=== PATIENT | female | born 1950 | race Caucasian/White ===

== ENCOUNTER → 2016-08-12 | Outpatient (CLI) | payer BC ==
[2016-08-12 10:20] LABS: Basophils # (A) 0.1 k/uL (0-0.2); Basophils % (A) 1 %; CH 30.6; CHCM 31.8; Eosinophils # (A) 0.3 k/uL (0-0.7); Eosinophils % (A) 4 %; HCT 39.6 % (34.0-46.0); HDW 2.22; HGB 13.1 gm/dL (11.4-16.0); Luc # (Auto) 0.23; Luc % (Auto) 3; Lymphocytes % (A) 26 %; MCHC 33.1 g/dL (31.0-37.0); MCV 96.7 fL (80.0-100.0); Mean Platelet Volume 6.6; Monocytes # (A) 0.5 k/uL (0-1.0); Monocytes % (A) 6 %; Neutrophils # (A) 4.8 k/uL (1.3-7.7); Neutrophils % (A) 61 %; RBC 4.09 m/uL (3.80-5.40); RDW 13.1 % (11.5-15.5); WBC 7.9 k/uL (3.8-10.6); WBC (Perox) 7.77
== END | disposition home or self-care (01) ==
LOC: LABWHC1 09:21
PROVIDERS: ATTEND Otolaryngology
DX: D36.10 Benign neoplasm of peripheral nerves and autonomic nervous system, unspecified (principal); D32.9 Benign neoplasm of meninges, unspecified; R53.83 Other fatigue; E06.9 Thyroiditis, unspecified
CPT/HCPCS: 36415; 84439; 84443; 85025; 86376

== ENCOUNTER → 2018-08-06 | Outpatient (CLI) | payer BC ==
--- NOTE | 2018-08-10 11:48 | MM ---
Reason for exam: screening (asymptomatic). Last mammogram was performed 5 years and 11 months ago. History: Patient is postmenopausal. Physical Findings: A clinical breast exam by your physician is recommended on an annual basis and results should be correlated with mammographic findings. MG Screening Mammo w CAD Bilateral CC and MLO view(s) were taken. Prior study comparison: September 14, 2012, bilateral digital screening mammo w/CAD. June 20, 2009, bilateral digital screening mammogram. There are scattered fibroglandular densities. Finding #1: There is a 7 mm obscured round mass in the upper outer quadrant, middle position of the right breast with possible adjacent nodularity. Finding #2: There are typically benign round, linear calcifications in both breasts. #3 Nodular cluster left breast anterior middle depth central aspect 4cm from the nipple. New finding since September 14, 2012. ASSESSMENT: Incomplete: need additional imaging evaluation, BI-RAD 0 RECOMMENDATION: Special view mammogram of both breasts. Ultrasound of the right breast. [facility] will attempt to contact patient to return for supplemental views and ultrasound. MANOHAR
== END | disposition home or self-care (01) ==
LOC: RADMAMWWP 09:18
PROVIDERS: ATTEND Family Medicine
DX: Z12.31 Encounter for screening mammogram for malignant neoplasm of breast (principal)
CPT/HCPCS: 77067

== ENCOUNTER → 2018-08-24 | Outpatient (CLI) | payer BC ==
--- NOTE | 2018-08-24 11:34 | MM ---
Reason for exam: additional evaluation requested from abnormal screening. Last mammogram was performed 1 month ago. History: Patient is postmenopausal. Physical Findings: Nurse did not find any significant physical abnormalities on exam. MG Work Up Mamm w CAD BILAT Bilateral spot compression CC, spot compression MLO, and ML view(s) were taken. Prior study comparison: August 06, 2018, bilateral MG screening mammo w CAD. September 14, 2012, bilateral digital screening mammo w/CAD. The breast tissue is heterogeneously dense. This may lower the sensitivity of mammography. The bilateral masses at middle depth persist on additional views. Upper inner quadrant on the left measuring 5mm and upper outer quadrant on the right measuring 6mm. These results were verbally communicated with the patient and result sheet given to the patient on 08/24/18. ASSESSMENT: Incomplete: need additional imaging evaluation, BI-RAD 0 RECOMMENDATION: Ultrasound of both breasts. Left upper inner quadrant, right upper outer quadrant.
--- NOTE | 2018-08-24 11:37 | USB ---
Reason for exam: additional evaluation requested from abnormal screening. History: Patient is postmenopausal. US Breast Workup Limited NICOLA Right limited breast ultrasound including focal area of concern, retroareolar and axilla demonstrates a 0.7 x 0.3 x 0.5cm oval, cystic lesion at 11 o'clock. Left limited breast ultrasound including focal area of concern, retroareolar and axilla demonstrates a 0.3 x 0.4 x 0.2cm oval, hypoechoic lesion at 11 o'clock, possible small cyst. Left mammographic finding may represent ductal ectasia. These results were verbally communicated with the patient and result sheet given to the patient on 08/24/18. ASSESSMENT: Probably benign, BI-RAD 3 RECOMMENDATION: Follow-up diagnostic mammogram and ultrasound of the left breast in 6 months.
== END | disposition home or self-care (01) ==
LOC: RADMAMWWP 08:57
PROVIDERS: ATTEND Family Medicine
DX: R92.8 Other abnormal and inconclusive findings on diagnostic imaging of breast (principal)
CPT/HCPCS: 77066

== ENCOUNTER → 2019-05-23 | Outpatient (CLI) | payer OTHER ==
--- NOTE | 2019-05-23 10:26 | MM ---
Reason for exam: follow-up at short interval from prior study. Last mammogram was performed 9 months ago. History: Patient is postmenopausal and history of other cancer. Physical Findings: Nurse did not find any significant physical abnormalities on exam. MG Diagnostic Mammo LT w CAD CC, MLO, and ML view(s) were taken of the left breast. Prior study comparison: August 24, 2018, bilateral MG work up mamm w CAD BILAT. August 06, 2018, bilateral MG screening mammo w CAD. There are scattered fibroglandular densities. Benign appearing calcifications in the left breast. No suspicious abnormality. Stable 5mm upper inner quadrant left middle depth mass. These results were verbally communicated with the patient and result sheet given to the patient on 05/23/19. ASSESSMENT: Probably benign, BI-RAD 3 RECOMMENDATION: Follow-up diagnostic mammogram of both breasts in 6 months. Due July 2019.
--- NOTE | 2019-05-23 10:27 | USB ---
Reason for exam: follow-up at short interval from prior study. History: Patient is postmenopausal and history of other cancer. US Breast Limited LT Left limited breast ultrasound including focal area of concern, retroareolar and axilla demonstrates no cystic or solid lesion seen. The previously seen 3mm mass at 11 o'clock is no longer seen. These results were verbally communicated with the patient and result sheet given to the patient on 05/23/19. ASSESSMENT: Probably benign, BI-RAD 3 RECOMMENDATION: Follow-up diagnostic mammogram of both breasts in 6 months. Due July 2019.
== END | disposition home or self-care (01) ==
LOC: RADMAMWWP 08:13
PROVIDERS: ATTEND Family Medicine
DX: N63.20 Unspecified lump in the left breast, unspecified quadrant (principal); Q85.00 Neurofibromatosis, unspecified
CPT/HCPCS: 77065

== ENCOUNTER → 2020-06-27 | Outpatient (CLI) | payer BC ==
--- NOTE | 2020-06-28 08:20 | ECHOF ---
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 This was a technically adequate study. The left ventricular size is normal. There is mild concentric left ventricular hypertrophy. Overa ll left ventricular systolic function is normal with, an EF between 65 - 70 %. The right ventricle is normal in size. Normal LA size by volume 22+/-6 ml/m2. The right atrium is normal in size. Interatrial and interventricular septum intact. The aortic valve is trileaflet, and appears structurally normal. No aortic stenosis or regurgitation. The mitral valve is normal. Mild tricuspid regurgitation present. Right ventricular systolic pressure is normal at < 35 mmHg. Trace/mild (physiologic) pulmonic regurgitation. The aortic root size is normal. Normal inferior vena cava with normal inspiratory collapse consistent with estimated right atrial pre ssure of 5 mmHg. There is no pericardial effusion. CONCLUSIONS -------- 1. The left ventricular size is normal. 2. There is mild concentric left ventricular hypertrophy. 3. Overall left ventricular systolic function is normal with, an EF between 65 - 70 %. 4. The aortic valve is trileaflet, and appears structurally normal. No aortic stenosis or regurgitati on. 5. Mild tricuspid regurgitation present. 6. Trace/mild (physiologic) pulmonic regurgitation. 7. There is no pericardial effusion. MAMMAL KEEPER: Mikayla Ravi RDCS
== END | disposition home or self-care (01) ==
LOC: RADECHMAIN 11:22
PROVIDERS: ATTEND Family Medicine
DX: I08.2 Rheumatic disorders of both aortic and tricuspid valves (principal)
CPT/HCPCS: 93306

== ENCOUNTER → 2020-07-25 | Outpatient (CLI) | payer BC ==
[2020-07-25 12:12] LABS: African American GFR (CKD) >90 (>60 ml/min/1.73 sqM); Blood Urea Nitrogen 18 mg/dL (7-17); Non-African American GFR(CKD) >90 (>60 ml/min/1.73 sqM)
--- NOTE | 2020-07-25 14:46 | CT ---
EXAMINATION TYPE: CT angio renal artery DATE OF EXAM: 07/25/2020 COMPARISON: None HISTORY: Hypertension. CT DLP: 878 mGycm Automated exposure control for dose reduction was used. Contrast: None Technique: Axial images 5 mm thick sections. Reconstructed images in the coronal and sagittal plane a re reviewed. Three-D reconstructed images performed on a separate computer by the technologist are re viewed. FINDINGS: The aorta tapers normally through its visualized course. Common iliac internal and external iliac ves sels are normal. Celiac axis and superior mesenteric arteries are patent. There are 2 renal arteries. Origins are widely patent. No significant plaquing is identified. Vessels extend to the kidneys without focal stenosis. Note is made of a nonobstructing inferior pole 0.5 cm calcification right kidney. IMPRESSION: 1. NORMAL-APPEARING BILATERAL RENAL ARTERIES. NO STENOSIS OR OBSTRUCTION IS EVIDENT. 2. NONOBSTRUCTING INFERIOR POLE RIGHT RENAL STONE.
== END | disposition home or self-care (01) ==
LOC: RADCTMAIN 11:26
PROVIDERS: ATTEND Family Medicine
DX: N20.0 Calculus of kidney (principal)
CPT/HCPCS: 82565; 84520; 36415; 74175; Q9967

== ENCOUNTER → 2020-10-05 | Outpatient (CLI) | payer BC ==
--- NOTE | 2020-10-06 03:02 | MR ---
EXAMINATION TYPE: MR brain wo/w con DATE OF EXAM: 10/05/2020 COMPARISON: 01/08/2011 HISTORY: F/U meningioma CONTRAST: Standard multiplanar, multisequence MRI departmental protocol utilizing 9 mL intravenous Gadavist krystal olinium contrast. There is 2 cm area of fluid signal in the left posterior temporal lobe consistent with encephalomalac ia. There is a 2.5 cm rounded intermediate signal mass lateral to the left anterior clinoid process a nd consistent with a sphenoid wing meningioma. There is a 1.870 rounded mass at the right parietal co nvexity which appears extra-axial. There is 2 cm rounded mass adjacent to the cerebral falx in the le ft posterior parietal lobe which appears extra-axial. There is 3 cm extra-axial mass right posterior parietal lobe at the convexity. There is a 1.8 cm rounded extra-axial mass left posterior parietal lo be convexity. There is a 1.5 cm rounded mass adjacent to the cerebral falx right posterior parietal l obe convexity. There is 1.5 cm rounded mass anterior right temporal lobe convexity. There is 3.2 cm r ounded mass anterior right frontal lobe adjacent to the cerebral falx. There is 1.5 cm extra-axial en hancing mass left posterior cerebellar convexity. There are other multiple smaller extra-axial masses . The contrast images show fairly uniform enhancement of all of the described masses and consistent w ith multiple meningiomas. There is 1.5 cm area of enhancement at the left posterior temporal lobe enc ephalomalacia consistent with a meningioma. There is no midline shift. There is no sign of intracrani al hemorrhage. The ventricles have normal size. There is no evidence of an acute infarct. IMPRESSION: Numerous meningiomas. These are increased compared to old MR scan from 10 years ago. Right frontal lo be convexity mass significantly increased in size. Sphenoid wing meningioma increased from 2 cm to 2. 5 cm compared to old exam.
== END | disposition home or self-care (01) ==
LOC: RADMRIMAIN 19:00
PROVIDERS: ATTEND Psychiatry & Neurology Neurology
DX: D32.9 Benign neoplasm of meninges, unspecified (principal); D42.9 Neoplasm of uncertain behavior of meninges, unspecified
CPT/HCPCS: 70553; A9585

== ENCOUNTER 2021-03-20 07:06 | Inpatient (IN) | payer MEDICARE, BC ==
[2021-03-20] MEDS ORDERED: SODIUM CHLORIDE 0.9% 500 ML 500 ML IV STA (07:09)
--- NOTE | 2021-03-20 07:38 | CT ---
EXAMINATION TYPE: CT brain wo con for TPA DATE OF EXAM: 03/20/2021 COMPARISON: MRI 10/05/2020 HISTORY: 70-year-old female left-sided weakness, confusion, AMS TECHNIQUE: Examination was done in axial plane without intravenous contrast. Coronal and sagittal r econstructions performed. CT DLP: 1128.8 mGycm Automated exposure control for dose reduction was used. FINDINGS: Right frontal, left temporal, and left parietal craniotomy flaps are demonstrated. Numerous bilateral extra-axial masses demonstrating varying degrees of calcification are redemonstrat ed. For example, dominant left sphenoid wing meningioma measures 3.1 cm versus 2.9 cm on 10/05/2020. A nterior right frontal meningioma has slight mass effect onto the adjacent anterior falx with leftward bowing and measures up to 3.1 cm, unchanged. Posterior left parafalcine meningioma measures 2.6 cm versus 2.4 cm on 10/05/2020. Superior right parietal meningioma measures 2.7 cm, unchanged. Superior falcine meningioma measures 2.6 cm versus 2.3 cm, previously. Numerous additional meningiomas are present. No acute intracranial hemorrhage. No hydrocephalus or herniation. No extra-axial fluid collection se en. Old resection cavity posterior left temporal lobe is unchanged. Rightward nasal septal deviation. Continued complete opacification right frontal sinus and anterior e thmoid air cells. Mastoid air cells well pneumatized. IMPRESSION: 1. Multiple previous craniotomy flaps are redemonstrated. Numerous bilateral meningiomas are redemons trated with varying degrees of calcification. The anterior right frontal lobe 3.1 cm meningioma is un changed in size and also unchanged in the degree of mild mass effect onto the adjacent anterior falx causing slight leftward bowing. 2. Posterior left parafalcine meningioma minimally larger at 2.6 cm versus 2.4 cm previously. Superio r parafalcine meningioma minimally larger at 2.6 cm versus 2.3 cm, previously. Numerous additional bi lateral meningiomas appear relatively unchanged. 3. Otherwise, no acute change is identified.
[2021-03-20] MEDS ORDERED: ASPIRIN 325 MG TAB PO STA (07:46)
[2021-03-20 07:54] LABS: Basophils % (A) 0 %; Eosinophils # (A) 0.2 k/uL (0-0.7); Eosinophils % (A) 3 %; HCT 38.7 % (34.0-46.0); HGB 12.5 gm/dL (11.4-16.0); Lymphocytes % (A) 21 %; MCH 31.3 pg (25.0-35.0); MCHC 32.2 g/dL (31.0-37.0); MCV 97.2 fL (80.0-100.0); Monocytes # (A) 0.4 k/uL (0-1.0); Monocytes % (A) 4 %; Neutrophils # (A) 6.7 k/uL (1.3-7.7); Neutrophils % (A) 70 %; Platelet Count 407 k/uL (150-450); RBC 3.98 m/uL (3.80-5.40); RDW 12.8 % (11.5-15.5); WBC 9.6 k/uL (3.8-10.6)
--- NOTE | 2021-03-20 07:54 | ED ---
General Adult HPI - General Chief complaint: Neuro Symptoms/Deficit Stated complaint: Neuro Deficits Time Seen by Provider: 03/20/21 07:09 Source: EMS, RN notes reviewed, old records reviewed Mode of arrival: EMS Limitations: no limitations - History of Present Illness Initial comments: 70-year-old female presenting for evaluation of left sided weakness. Symptoms began at 5:50 AM when the patient awoke. Patient has previous history of multiple meningiomas. Has had craniotomy in the remote past. She is not on any anticoagulation. She has history of hypertension and recently had her losartan medication increased from 25-50 mg. Patient states she went to bed in her usual state of health last night without numbness or weakness. No major headache.no speech Changes. - Related Data Home Medications Medication Instructions Recorded Confirmed Multivitamins, Thera [Multivitamin] 1 tab PO DAILY 12/11/15 03/20/21 Jyotsna 500 mg PO DAILY 03/20/21 03/20/21 Ibuprofen 200 mg PO Q8H PRN 03/20/21 03/20/21 Losartan Potassium [Cozaar] 50 mg PO DAILY 03/20/21 03/20/21 Allergies Allergy/AdvReac Type Severity Reaction Status Date / Time Sulfa (Sulfonamide Allergy Rash/Hives Verified 03/20/21 09:48 Antibiotics) codeine AdvReac Severe Nausea & Verified 03/20/21 09:48 Vomiting brimonidine AdvReac cotton Verified 03/20/21 09:48 mouth Review of Systems ROS Statement: Those systems with pertinent positive or pertinent negative responses have been documented in the HPI. ROS Other: All systems not noted in ROS Statement are negative. 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, hemorrhoids, hx skin cancer History of Any Multi-Drug Resistant Organisms: None Reported Past Surgical History: Hysterectomy, Tonsillectomy Additional Past Surgical History / Comment(s): 3 brain surgeries for benign tumors, hemorrhoidectomy Past Anesthesia/Blood Transfusion Reactions: Motion Sickness, Postoperative Nausea & Vomiting (PONV) Additional Past Anesthesia/Blood Transfusion Reaction / Comment(s): severe PONV Past Psychological History: No Psychological Hx Reported Smoking Status: Former smoker Past Alcohol Use History: None Reported Past Drug Use History: None Reported - Past Family History Father Family Medical History: Cancer Mother Family Medical History: Cancer General Exam Limitations: no limitations General appearance: alert, in no apparent distress Head exam: Present: atraumatic, normocephalic Eye exam: Present: normal appearance, PERRL, EOMI ENT exam: Present: normal exam Neck exam: Present: normal inspection. Absent: tenderness, meningismus Respiratory exam: Present: normal lung sounds bilaterally. Absent: respiratory distress, wheezes Cardiovascular Exam: Present: normal rhythm, tachycardia GI/Abdominal exam: Present: soft. Absent: distended, tenderness, guarding Extremities exam: Present: normal inspection, normal capillary refill. Absent: pedal edema Neurological exam: Present: alert, oriented X3, motor sensory deficit (Left arm drift, left upper extremity ataxia, left leg drift, NIH of 6) Psychiatric exam: Present: normal affect, normal mood Skin exam: Present: warm, dry, intact. Absent: cyanosis, diaphoretic Course Vital Signs 03/20/21 03/20/21 03/20/21 07:20 07:35 07:40 Temperature 97.9 F 97.9 F 97.9 F Pulse Rate 106 H 109 H 107 H Respiratory 18 18 18 Rate Blood Pressure 153/77 162/76 153/77 O2 Sat by Pulse 98 98 98 Oximetry 03/20/21 03/20/21 03/20/21 07:50 08:05 08:20 Temperature 98.0 F 98 F 98 F Pulse Rate 101 H 109 H 104 H Respiratory 18 18 18 Rate Blood Pressure 149/70 166/81 167/83 O2 Sat by Pulse 99 97 97 Oximetry - Reevaluation(s) Reevaluation #1: 03/20/21 07:[address] Saenz, covering for stroke intervention, recommends medical management at this time given the low NIH, history of meningioma and wake up symptoms. Patient not a TPA candidate. EKG Findings - EKG Comments: EKG Findings:: EKG: Sinus tachycardia rate of 102, left axis deviation, left ventricular hypertrophy, IN interval 146, QRS duration 82, QTC 450, no ST segment elevation. Medical Decision Making - Medical Decision Making 70-year-old female history of multiple meningiomas, neurofibromatosis presenting with acute onset left-sided weakness. Initial NIH of 6. Patient is evaluated as a stroke activation. She does also have some tremor activity which is rhythmic and occurring about every [address] showing multiple meningiomas which does appear relatively stable, no intracranial hemorrhage. CT angiography negative for acute obstruction or stenosis. Patient's care had been discussed with the stroke intervention was Dr. Diaz who did not recommend TPA, no need for thrombectomy or acute management. I discussed case with [facility] with the patient is familiar with regarding her meningiomas. I discussed case with their stroke team and with the neuro earth science technician Dr. Gilmore. At this time the patient will be kept at this institution, recommendations were for EEG and Keppra. The case is also been discussed with Dr. Ochoa who is happy to see this patient in consultation. If the patient should develop worsening or changing symptoms or should have refractory seizure she can be transferred to [facility], team is aware of patient's current presentation. - Lab Data Result diagrams: 03/20/21 07:46 03/20/21 07:46 Lab Results 03/20/21 03/20/21 03/20/21 Range/Units 07:46 07:46 07:46 WBC 9.6 (3.8-10.6) k/uL RBC 3.98 (3.80-5.40) m/uL Hgb 12.5 (11.4-16.0) gm/dL Hct 38.7 (34.0-46.0) % MCV 97.2 (80.0-100.0) fL MCH 31.3 (25.0-35.0) pg MCHC 32.2 (31.0-37.0) g/dL RDW 12.8 (11.5-15.5) % Plt Count 407 (150-450) k/uL MPV 7.0 Neutrophils % 70 % Lymphocytes % 21 % Monocytes % 4 % Eosinophils % 3 % Basophils % 0 % Neutrophils # 6.7 (1.3-7.7) k/uL Lymphocytes # 2.0 (1.0-4.8) k/uL Monocytes # 0.4 (0-1.0) k/uL Eosinophils # 0.2 (0-0.7) k/uL Basophils # 0.0 (0-0.2) k/uL PT 10.5 (9.0-12.0) sec INR 1.0 (<1.2) APTT 25.1 (22.0-30.0) sec Sodium 135 L (137-145) mmol/L Potassium 4.8 (3.5-5.1) mmol/L Chloride 103 (98-107) mmol/L Carbon Dioxide 21 L (22-30) mmol/L Anion Gap 11 mmol/L BUN 18 H (7-17) mg/dL Creatinine 0.56 (0.52-1.04) mg/dL Est GFR (CKD-EPI)AfAm >90 (>60 ml/min/1.73 sqM) Est GFR (CKD-EPI)NonAf >90 (>60 ml/min/1.73 sqM) Glucose 132 H (74-99) mg/dL Calcium 9.5 (8.4-10.2) mg/dL Total Bilirubin 0.9 (0.2-1.3) mg/dL AST 21 (14-36) U/L ALT 16 (4-34) U/L Alkaline Phosphatase 119 (38-126) U/L Troponin I (0.000-0.034) ng/mL Total Protein 7.5 (6.3-8.2) g/dL Albumin 4.1 (3.5-5.0) g/dL Coronavirus (PCR) (Not Detectd) 03/20/21 03/20/21 Range/Units 07:46 09:07 WBC (3.8-10.6) k/uL RBC (3.80-5.40) m/uL Hgb (11.4-16.0) gm/dL Hct (34.0-46.0) % MCV (80.0-100.0) fL MCH (25.0-35.0) pg MCHC (31.0-37.0) g/dL RDW (11.5-15.5) % Plt Count (150-450) k/uL MPV Neutrophils % % Lymphocytes % % Monocytes % % Eosinophils % % Basophils % % Neutrophils # (1.3-7.7) k/uL Lymphocytes # (1.0-4.8) k/uL Monocytes # (0-1.0) k/uL Eosinophils # (0-0.7) k/uL Basophils # (0-0.2) k/uL PT (9.0-12.0) sec INR (<1.2) APTT (22.0-30.0) sec Sodium (137-145) mmol/L Potassium (3.5-5.1) mmol/L Chloride (98-107) mmol/L Carbon Dioxide (22-30) mmol/L Anion Gap mmol/L BUN (7-17) mg/dL Creatinine (0.52-1.04) mg/dL Est GFR (CKD-EPI)AfAm (>60 ml/min/1.73 sqM) Est GFR (CKD-EPI)NonAf (>60 ml/min/1.73 sqM) Glucose (74-99) mg/dL Calcium (8.4-10.2) mg/dL Total Bilirubin (0.2-1.3) mg/dL AST (14-36) U/L ALT (4-34) U/L Alkaline Phosphatase (38-126) U/L Troponin I <0.012 (0.000-0.034) ng/mL Total Protein (6.3-8.2) g/dL Albumin (3.5-5.0) g/dL Coronavirus (PCR) Not Detected (Not Detectd) Disposition Clinical Impression: Seizure, Left-sided weakness Disposition: ADMITTED IP TO THIS [facility] Condition: Stable Is patient prescribed a controlled substance at d/c from ED?: No Decision to Admit Reason: Admit from EC Decision Date: 03/20/21 Decision Time: 10:08
--- NOTE | 2021-03-20 07:59 | CT ---
EXAMINATION TYPE: CT angio head neck DATE OF EXAM: 03/20/2021 COMPARISON: CT brain same day HISTORY: 70-year-old female left-sided weakness, confusion, AMS TECHNIQUE: Contiguous axial scanning of the head and neck performed with IV Contrast, patient injecte d with 65 mL of Isovue 370. Coronal/sagittal MIP reconstructions performed. 3-D reconstructions gener ated on a dedicated independent workstation. CT DLP: 627.1 mGycm Automated exposure control for dose reduction was used. FINDINGS: NECK: Mild biapical pleural-parenchymal scarring in the visualized upper lungs. There is conventional arterial vessel branching anatomy. The right brachiocephalic, right common carotid artery are patent. Retropharyngeal course proximal to mid right ICA. Right ICA otherwise widely patent. Left common and left internal carotid arteries are widely patent. NASCET criteria is utilized. Left vertebral artery is dominant. Both vertebral arteries are patent throughout the course. HEAD: Dominant left vertebral artery. The right vertebral artery becomes even more hypoplastic after the PI CA takeoff. The basilar artery is diffusely diminutive in caliber. There are bilateral persistent origin of the posterior cerebral arteries. Posterior circulation otherwise appears patent. The internal carotid arteries are patent. Anterior communicating artery not well seen, likely hypopla stic. The patient's left sphenoid wing meningioma has mass effect, superiorly displacing the left carotid t erminus and M1 segment of the left MCA. Anterior circulation appears patent. There is enhancement seen within the dural venous sinuses. Somewhat irregular enhancement left transv erse sinus similar to the 10/05/2020 MRI with overlying craniotomy flap noted, likely due to postsurgi jake change. No aneurysmal change identified. IMPRESSION: NECK: 1. PATENT CAROTID AND VERTEBRAL ARTERIES OF THE NECK. 2. DOMINANT LEFT VERTEBRAL ARTERY. HEAD: 3. AGAIN, DOMINANT LEFT VERTEBRAL ARTERY. THE RIGHT VERTEBRAL ARTERY BECOMES EVEN MORE HYPOPLASTIC AF TER THE PICA TAKEOFF AND THE BASILAR ARTERY IS DIFFUSELY DIMINUTIVE IN CALIBER. CORRELATE FOR ANY CHR ONIC SYMPTOMS OF VERTEBROBASILAR INSUFFICIENCY. 4. THE POSTERIOR CEREBRAL ARTERIES ARE SUPPLIED BY PERSISTENT ORIGINS FROM THE INTERNAL CAROTID ARTERIES. 5. INCIDENTALLY, THE PATIENT'S LEFT SPHENOID WING MENINGIOMA HAS MASS EFFECT, SUPERIORLY DISPLACING T HE LEFT CAROTID TERMINUS AND M1 SEGMENT LEFT MCA, OVERALL SIMILAR APPEARANCE COMPARED TO MRI OF 2020. 6. NO LARGE VESSEL INTRACRANIAL ARTERIAL OCCLUSION OR SIGNIFICANT STENOSIS IS SEEN. CONSIDER MRI IF S YMPTOMS PERSIST.
[2021-03-20 08:02] LABS: Partial Thromboplastin Time 25.1 sec (22.0-30.0); Prothrombin Time 10.5 sec (9.0-12.0)
[2021-03-20 08:19] LABS: ALT 16 U/L (4-34); AST 21 U/L (14-36); African American GFR (CKD) >90 (>60 ml/min/1.73 sqM); Albumin 4.1 g/dL (3.5-5.0); Alkaline Phosphatase 119 U/L (38-126); Anion Gap 11 mmol/L; Blood Urea Nitrogen 18 mg/dL (7-17); Calcium 9.5 mg/dL (8.4-10.2); Carbon Dioxide 21 mmol/L (22-30); Chloride 103 mmol/L (98-107); Glucose 132 mg/dL (74-99); Non-African American GFR(CKD) >90 (>60 ml/min/1.73 sqM); Potassium 4.8 mmol/L (3.5-5.1); Sodium 135 mmol/L (137-145); Total Bilirubin 0.9 mg/dL (0.2-1.3); Total Protein 7.5 g/dL (6.3-8.2)
[2021-03-20] MEDS ORDERED: levETIRAcetam IV 1,500 MG in SALINE 1 100ML.BAG IVPB STA (08:46)
--- NOTE | 2021-03-20 08:58 | XR ---
EXAMINATION TYPE: XR chest 2V DATE OF EXAM: 03/20/2021 COMPARISON: NONE HISTORY: Altered mental status TECHNIQUE: Frontal and lateral views of the chest are obtained. FINDINGS: Patient is rotated. There is no focal air space opacity, pleural effusion, or pneumothorax seen. The cardiac silhouette size is remarkable for possible cardiac enlargement. There are overlyin g artifacts. The osseous structures are intact. IMPRESSION: Rotated exam. Consider follow-up PA and lateral chest x-ray for better evaluation, possi ble cardiomegaly
[2021-03-20] MEDS ORDERED: ACETAMINOPHEN TAB 325 MG TAB PO STA (10:08)
[2021-03-20] MEDS ORDERED: NALOXONE 0.4 MG/ML 1 ML VIAL IV PRN (10:11)
[2021-03-20] MEDS: SODIUM CHLORIDE 0.9% 1,000 ML IV SCH ×2 (11:19→20:23)
[2021-03-20] MEDS ORDERED: IBUPROFEN 200 MG TAB PO PRN (11:31)
--- NOTE | 2021-03-20 11:36 | P.HPIM ---
History of Present Illness H&P Date: 03/20/21 Chief Complaint: Tremors and weakness 70-year-old female with history of multiple brain meningiomas presented to emergency department due to sudden onset of left-sided weakness as well as generalized tremors that started today. Patient stated that he has some tremors yesterday but no weakness. This morning when she woke up around 5:00 in the morning she noted that her left side was weak. She could not use her left arm or leg. In addition she was having generalized tremors/shaking episodes that would last for several minutes and then subside spontaneously. She states that she feels those episodes coming when they do. Patient has significant history of multiple meningiomas that was diagnosed about 15 years ago. She had 3 brain surgeries for tumor resection in the past and most recently she was supposed to have a follow-up MRI this month to follow-up on the size of the meningiomas. In the emergency department patient had a head CT scan that showed numerous bilateral meningiomas, the anterior right frontal lobe 3.1 cm meningioma is not changed in size or the mild mass effect on to the adjacent anterior falx, posterior left parafalcine meningioma minimally larger at 2.6 cm versus 2.4 cm previously. Superior parafalcine meningioma minimally larger at 2.6 cm versus 2.3 cm previously. Numerous additional bilateral meningiomas appear relatively unchanged. Case was discussed with neurology who advised transferring patient to [facility] however due to no bed availability she was kept here for further management. 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, hemorrhoids, hx skin cancer History of Any Multi-Drug Resistant Organisms: None Reported Past Surgical History: Hysterectomy, Tonsillectomy Additional Past Surgical History / Comment(s): 3 brain surgeries for benign tumors, hemorrhoidectomy Past Anesthesia/Blood Transfusion Reactions: Motion Sickness, Postoperative Nausea & Vomiting (PONV) Additional Past Anesthesia/Blood Transfusion Reaction / Comment(s): severe PONV Past Psychological History: No Psychological Hx Reported Smoking Status: Former smoker Past Alcohol Use History: None Reported Past Drug Use History: None Reported - Past Family History Father Family Medical History: Cancer Mother Family Medical History: Cancer Medications and Allergies Home Medications Medication Instructions Recorded Confirmed Type Multivitamins, Thera [Multivitamin] 1 tab PO DAILY 12/11/15 03/20/21 History Jyotsna 500 mg PO DAILY 03/20/21 03/20/21 History Ibuprofen 200 mg PO Q8H PRN 03/20/21 03/20/21 History Losartan Potassium [Cozaar] 50 mg PO DAILY 03/20/21 03/20/21 History Allergies Allergy/AdvReac Type Severity Reaction Status Date / Time Sulfa (Sulfonamide Allergy Rash/Hives Verified 03/20/21 09:48 Antibiotics) codeine AdvReac Severe Nausea & Verified 03/20/21 09:48 Vomiting brimonidine AdvReac cotton Verified 03/20/21 09:48 mouth Physical Exam Vitals: Vital Signs Temp Pulse Resp BP Pulse Ox 03/20/21 08:20 98 F 104 H 18 167/83 97 03/20/21 08:05 98 F 109 H 18 166/81 97 03/20/21 07:50 98.0 F 101 H 18 149/70 99 03/20/21 07:40 97.9 F 107 H 18 153/77 98 03/20/21 07:35 97.9 F 109 H 18 162/76 98 03/20/21 07:20 97.9 F 106 H 18 153/77 98 Intake and Output 03/19/21 03/20/21 03/20/21 22:59 06:59 14:59 Other: Weight 92.986 kg Constitutional: No acute distress, conversant, pleasant Eyes:Anicteric sclerae, moist conjunctiva, no lid-lag, PERRLA, ENMT: Oropharynx clear, no erythema, exudates Neck: Supple, FROM, no masses, or JVD, No carotid bruits, No thyromegaly Lungs: Clear to auscultation, Clear to percussion, Normal respiratory effort, no accessory muscle use Cardiovascular: Heart regular in rate and rhythm, No murmurs, gallops, or rubs, No peripheral edema Abdominal: Soft, Nontender, no guarding, rebound or rigidity, Normoactive bowel sounds, No hepatomegaly, No splenomegaly, No palpable mass Skin: Normal temperature, tone, texture, turgor, no induration, No subcutaneous nodules, No rash, lesions, No ulcers Extremities: No digital cyanosis, No clubbing, Pedal pulses intact and symmetrical, Radial pulses intact and symmetrical, No calf tenderness Psychiatric: Alert and oriented to person, place and time, appropriate affect, intact judgement Neuro: Muscles Strength 5/5 in RUE and RLE extremities, 4+/5 in the LUE and LLE. Sensation to light touch grossly present throughout, Cranial nerves II-XII grossly intact, no focal sensory deficits Results CBC & Chem 7: 03/20/21 07:46 03/20/21 07:46 Labs: Abnormal Lab Results - Last 24 Hours (Table) 03/20/21 Range/Units 07:46 Sodium 135 L (137-145) mmol/L Carbon Dioxide 21 L (22-30) mmol/L BUN 18 H (7-17) mg/dL Glucose 132 H (74-99) mg/dL Assessment and Plan Plan: Generalized tremors/seizures Patient admitted Tele Neuro consult-recommending brain MRI and EEG. Keppra started Neurochecks q2hrs Hx of multiple brain menigiomas Follow up with neurosurgeon outpatient Chronic headaces Tylenol prn GERD HTN Stable resume meds Admitted to inpatient expected length of stay more than 2 midnights
--- NOTE | 2021-03-20 11:36 | P.CNNES ---
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 Patient is accompanied by her and her daughter. Patient stated that that the her last normal state was at 3:30 AM today and then she went to sleep and when she woke up at 550 at a.m. she noticed that her left leg was weak rated she also noted that she was having rhythmic contraction over the left groin region as well as the left chest region that was happening every 5 minutes lasting for about a minute. She also noted that she was also having a left upper extremity weakness. She denies any numbness or tingling, visual disturbance, difficulty getting her words out. During these rhythmic the contraction over the left groin and the thigh she denies any loss of consciousness, urinary bowel incontinence or any tongue bite at. She denies any recall that she is having any jerking episode. She denies any history of seizures in the past. Per the ED attending he noticed that she was having tremors associate with this contraction of bilateral upper extremities. Patient denies any stroke or TIAs in the past and I stated earlier she denies any history of seizures. She has numerous meningiomas and the follows up with a neurologist (Dr. Jadon Perez) and neurosurgeon (Dr. Marck Carlos) over at [facility] and the last time she was in [place] by them was in September 2020. Stated that to her neurosurgeon suspects that the patient has neurofibromatosis type 2 and she does not have any family history of neurfibromatosis. He did not have a genetic test done since it was too expensive. She said that the she has outpatient the MRI of her entire spine scheduled (ordered by her neurologist /neurosurgeon) to evaluate any further meningiomas. Of note patient stated that she had the 2 surgeries in 2004 with a removed some of the the meningiomas his surgery in 2006 and both surgeries were at [facility]. She said in 2007 surgery she developed the as a result mild the cognitive impairment as well as the difficulty getting her words out. Patient denies of tobacco use, and illicit drug use or alcohol use. Some other workup in the hospital consisted of: Initial vital signs blood pressure of 153/77, heart rate of 106, respiratory of 18, temperature of 97.9 Fahrenheit and the pulse ox of 98% room air. CBC with differential is unremarkable Chemstrip panel sodium was 135, glucose is 132 but the rest of the chemistry panel is unremarkable Calcium is 9.5, AST of 21, ALP of 16 Connors virus PCR was not detected. CT of the head is reported as multiple previous craniotomy flap R redemonst rated. Numerous bilateral meningioma R redemonstrated with varying degree of calcification. The anterior right frontal lobe 3.1 cm meningioma is unchanged in size and also on change in the degree of mild mass effect onto the adjacent anterior falx causing slight left forward bowling. Posterior left parafalcine meningioma minimally larger at 2.6 cm versus 2.4 cm previously. Superior to her fell sign meningioma minimally larger at 2.6 cm versus 2.3 cm previously. Numerous additional bilateral meningioma appear relatively unchanged. Otherwise no acute change identified. I personally reviewed the CT of the head and there is no acute subacute ischemia and there is no truncal hemorrhage appeared the patient has numerous meningioma seen CT angiography of the neck is reported as patent carotid vertebral arteries of the neck. Dominant left vertebral artery. CT angiography of the head is reported again dominant left vertebral artery. The right vertebral artery becomes even more hypoplastic after the PICA takeoff and the basilar artery is diffusely and diminutive in caliber correlate for any chronic symptoms of vertebrobasilar insufficiency. The posterior cerebral artery are supplied by the persistent origin from the internal carotid arteries at. Incidentally the patient's left sphenoid wing meningioma has mass effect, superiorly displaced in the left carotid terminus and M1 segment left MCA, overall similar appearance compared to MRI of 10/05/2020. No larger vessel intracranial arterial occlusion or significant stenosis is seen. Consider MRI if symptoms persist. The ED team felt possibly this was a stroke and activateed stroke code. NIH per the ED team was 6. The ED the team spoke with Dr. baker I did not feel the patient was a TPA candidate (think because of the risk outweighed the benefit especially with numerous meningioma) and no need for thrombectomy. The patient was given aspirin 325 once in the ED. The ED attending spoke with me and I felt the patient likely had that seizure especially with the tremor activity with rhythmic and occurring every 5 minutes. I notified the ED attending to have the patient transferred for neuro surgical evaluation. He contacted [facility] and they stated that if the patient's condition worsens they'll be more than happy to accept the patient since no bed availability. Review of Systems Review of system: The 12 point system was reviewed and apparent positive and negative per HPI. 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, hemorrhoids, hx skin cancer History of Any Multi-Drug Resistant Organisms: None Reported Past Surgical History: Hysterectomy, Tonsillectomy Additional Past Surgical History / Comment(s): 3 brain surgeries for benign tumors, hemorrhoidectomy Past Anesthesia/Blood Transfusion Reactions: Motion Sickness, Postoperative Nausea & Vomiting (PONV) Additional Past Anesthesia/Blood Transfusion Reaction / Comment(s): severe PONV Past Psychological History: No Psychological Hx Reported Smoking Status: Former smoker Past Alcohol Use History: None Reported Past Drug Use History: None Reported - Past Family History Father Family Medical History: Cancer Mother Family Medical History: Cancer Medications and Allergies Home Medications Medication Instructions Recorded Confirmed Type Multivitamins, Thera [Multivitamin] 1 tab PO DAILY 12/11/15 03/20/21 History Jyotsna 500 mg PO DAILY 03/20/21 03/20/21 History Ibuprofen 200 mg PO Q8H PRN 03/20/21 03/20/21 History Losartan Potassium [Cozaar] 50 mg PO DAILY 03/20/21 03/20/21 History Allergies Allergy/AdvReac Type Severity Reaction Status Date / Time Sulfa (Sulfonamide Allergy Rash/Hives Verified 03/20/21 09:48 Antibiotics) codeine AdvReac Severe Nausea & Verified 03/20/21 09:48 Vomiting brimonidine AdvReac cotton Verified 03/20/21 09:48 mouth Physical Examination - Vital Signs Vital Signs: Vital Signs Temp Pulse Resp BP Pulse Ox 03/20/21 08:20 98 F 104 H 18 167/83 97 03/20/21 08:05 98 F 109 H 18 166/81 97 03/20/21 07:50 98.0 F 101 H 18 149/70 99 03/20/21 07:40 97.9 F 107 H 18 153/77 98 03/20/21 07:35 97.9 F 109 H 18 162/76 98 03/20/21 07:20 97.9 F 106 H 18 153/77 98 Intake and Output 03/19/21 03/20/21 03/20/21 22:59 06:59 14:59 Other: Weight 92.986 kg GENERAL: The patient is lying in bed and is not in acute distress. CHEST: The heart rate is regular rate rhythm. No murmurs to auscultation. LUNG: Clear to auscultation bilaterally no wheezing noted throughout. Not labored breathing. ABDOMEN/GI: Bowel sounds present in all 4 quadrants. No tenderness to palpation throughout. NEUROLOGICAL: Higher mental function: The patient is awake, alert, oriented to self, place and time. Patient is following commands. No aphasia and no neglect. Cranial nerves: The pupils are round, equal and reactive to light and accommodation. Visual knutson are full to confrontation throughout. Extraocular movement is intact no nystagmus is noted. Facial sensation is normal to touch throughout. The facial strength is normal throughout. Hearing is mildly decreased bilaterally to hand rub. Tongue is midline and moved [id number] without any difficulty. No dysarthria is noted. Shoulder shrug is normal bilaterally. Motor: The strength is 5 over 5 throughout. Normal tone and bulk. Cerebellum: Normal finger to nose bilaterally. Sensation: Sensation is normal to touch throughout. Reflexes (right/left): 1+ throughout-. Plantars are mute bilaterally. Results - Laboratory Findings CBC and BMP: 03/20/21 07:46 03/20/21 07:46 Abnormal Lab Findings: Abnormal Labs 03/20/21 07:46 Sodium 135 L Carbon Dioxide 21 L BUN 18 H Glucose 132 H Assessment and Plan Assessment: Transient Left sided weakness with episode of contraction of over the left groin and left chest region (and ED noticed tremor of bilateral upper extremity associated with it): Likely new onset seizure-focal more seizure without loss of consciousness (especially with hx of numerous meningioma). Unlikely stroke. Numerous Meningioma (over bilateral hemispheres) with history of multiple surgeries in 2004 and 2006 Suspected Neurofibromatosis type 2 (by her neurosurgeon) Hypertension and on presentation is mildly elevated Plan: I loaded the patient with Keppra 1500 mg once and start the patient on Keppra 500 mg every 12 hours An EEG is ordered and is pending I ordered MRI of the brain with and without. I will not start the patient on antiplatelets since seizure is likely suspected. I'll hold off on the stroke workup as well (unless stroke is seen on MRI). Continue neuro checks Placed the patient on seizure precaution, seizure pads PT, OT and HUMAN SERVICE WORKER are consulted Patient wants to continue with outpatient MRI entire spine ordered by her neurologist/neurosurgeon over at [facility]. We'll defer the rest of medical management to the primary team Upon discharge the patient needs to follow-up with a neurosurgeon as well as neurologist as an outpatient within 1-2 weeks. The plan is discussed with the patient and her and daughter (who are at bedside). If the patient condition worsens or has status then recommend transferring patient for marine oil terminal superintendent EEG and neurosugical evaluation. Thank you for the consultation. Jefferson Ochoa M.D. Neuro-Hospitalist Time with Patient: Greater than 30
--- NOTE | 2021-03-20 14:22 | MR ---
EXAMINATION TYPE: MR brain wo/w con DATE OF EXAM: 03/20/2021 COMPARISON: Prior MR brain 10/05/2020, CT 03/20/2021 HISTORY: Left sided weakness, Hx of meningioma, R/O stroke TECHNIQUE: Multiplanar, multisequence images of the brain and brainstem is performed without and with IV contras t, utilizing 9 mL intravenous Gadavist . FINDINGS: Diffusion weighted images demonstrate interval restricted diffusion in one of the meningiom as along the posterior falx, there has been interval development of mixed signal on postcontrast, inv ersion recovery T2-weighted sequences as well as the lesion towards the convexity on the right pariet al lobe which likely is due to underlying necrosis. There is no extra-axial fluid collection or sign ificant change in white matter signal abnormality. The ventricular system and cisternal spaces are s table in size and appearance. The brain volume is stable, multiple masses consistent with patient's known meningiomas are again noted with associated enhancement, similar sizes, partial calcification. Lesion at the posterior falx is thought to have increased in size from approximately 2.4 cm to 2.8 cm on the left. Lesion showing probable necrosis in the right parietal lobe towards the convexity measu res approximately 3.1 cm in greatest dimension increased from prior exam of 2.9 cm. Lesion at the con vexity is calcified as noted on prior CT. Midline structures demonstrate similar morphology. The craniocervical junction appears within normal limits. The dural venous sinuses appear patent. The visualized sinuses are showing inflammatory wilhelm ge in the ethmoid air cells, frontal sinus and the globes are intact. There are craniotomy flaps pres ent. IMPRESSION: Patient with known multiple meningiomas bilaterally, interval areas of necrosis suspected , slight interval growth
[2021-03-20] MEDS: levETIRAcetam IV 500 MG in SODIUM CHLORIDE 0.9% 100 ML IVPB SCH ×2 (14:27→23:52)
--- NOTE | 2021-03-20 14:44 | EEG ---
ELECTROENCEPHALOGRAM REPORT DATE OF SERVICE: 03/20/2021 This is a 70-year-old woman with history of numerous meningioma that presented to the hospital because of left-sided weakness and tremor. The video EEG is obtained to evaluate for seizure epileptiform activity. EEG TYPE: A routine 21 channel EEG is performed with video using the 10/20 electrode placement system. RELEVANT MEDICATION: Keppra. DESCRIPTION: Awake and drowsy state is obtained. During awake state, the background consists of low to moderate voltage of 9-10 hertz activity. There is no physiological stage 2 sleep architecture. There is no focal slowing seen. There is a moderate degree of high amplitude activity over the left central/temporal derivatives as well as mild degree of high amplitude activity over the right central derivatives consistent with breach. Interictal and ictal is none. ACTIVATION PROCEDURE: Photic stimulation did evoke a posterior driving response at multiple flash frequencies. There is no abnormality during the photic stimulation. Hyperventilation is not performed. CLINICAL INTERPRETATION: This is an abnormal routine EEG. There is a breach rhythm consistent with the patient's history of skull defect. Otherwise, the routine EEG is normal. There is no focal slowing, epileptiform discharge or seizure on the EEG appreciated. Clinical correlation is recommended. MMODL / IJN: [id number] / MANOHAR
[2021-03-20] MEDS: ACETAMINOPHEN TAB 325 MG TAB PO PRN ×2 (18:06→23:57)
[2021-03-21] MEDS: SODIUM CHLORIDE 0.9% 1,000 ML IV SCH (02:17)
[2021-03-21 05:52] VITALS: PULSE 100
[2021-03-21 08:23] LABS: Basophils % (A) 0 %; Eosinophils # (A) 0.2 k/uL (0-0.7); Eosinophils % (A) 2 %; HCT 39.3 % (34.0-46.0); HGB 12.7 gm/dL (11.4-16.0); Lymphocytes # (A) 2.2 k/uL (1.0-4.8); Lymphocytes % (A) 23 %; MCH 31.9 pg (25.0-35.0); MCHC 32.4 g/dL (31.0-37.0); MCV 98.5 fL (80.0-100.0); Mean Platelet Volume 6.7; Monocytes # (A) 0.6 k/uL (0-1.0); Monocytes % (A) 6 %; Neutrophils # (A) 6.5 k/uL (1.3-7.7); Neutrophils % (A) 67 %; Platelet Count 427 k/uL (150-450); RBC 3.99 m/uL (3.80-5.40); RDW 12.8 % (11.5-15.5); WBC 9.8 k/uL (3.8-10.6)
[2021-03-21 08:39] LABS: ALT 17 U/L (4-34); AST 25 U/L (14-36); African American GFR (CKD) >90 (>60 ml/min/1.73 sqM); Albumin 4.4 g/dL (3.5-5.0); Alkaline Phosphatase 115 U/L (38-126); Anion Gap 11 mmol/L; Blood Urea Nitrogen 17 mg/dL (7-17); Calcium 9.8 mg/dL (8.4-10.2); Carbon Dioxide 25 mmol/L (22-30); Chloride 103 mmol/L (98-107); Glucose 116 mg/dL (74-99); Magnesium 1.9 mg/dL (1.6-2.3); Non-African American GFR(CKD) >90 (>60 ml/min/1.73 sqM); Phosphorus 3.5 mg/dL (2.5-4.5); Potassium 4.7 mmol/L (3.5-5.1); Sodium 139 mmol/L (137-145); Total Protein 8.1 g/dL (6.3-8.2)
[2021-03-21 08:44] VITALS: BP 164/82; RESP 17; TEMP 98.3
[2021-03-21] MEDS: ACETAMINOPHEN TAB 325 MG TAB PO PRN (08:45)
[2021-03-21] MEDS ORDERED: MULTIVITAMINS, THERA 1 EACH TAB PO SCH (09:00)
[2021-03-21] MEDS ORDERED: LOSARTAN 50 MG TAB PO SCH (09:00)
--- NOTE | 2021-03-21 10:36 | P.PN ---
Subjective Progress Note Date: 03/21/21 The patient is seen at bedside and he stated she is doing better today compared to initial presentation. After getting Keppra yesterday she has not had any further contraction of the left chest and groin region associated with left leg weakness. She feels back to baseline. Objective - Vital Signs Vital signs: Vital Signs Temp 98.3 F 03/21/21 08:43 Pulse 100 03/21/21 08:43 Resp 17 03/21/21 08:43 BP 164/82 03/21/21 08:43 Pulse Ox 94 L 03/21/21 08:43 Intake & Output 03/20/21 03/21/21 03/21/21 18:59 06:59 18:59 Intake Total 100 Balance 100 Weight 92.986 kg Intake: Intake, IV Titration 100 Amount levETIRAcetam IV 500 mg 100 In Sodium Chloride 0.9% 100 ml @ 400 mls/hr IVPB Q12HR@0000,1200 [facility] Rx#: [id number] Other: Voiding Method Toilet Toilet # Voids 1 1 - Exam GENERAL: The patient is lying in bed and is not in acute distress. NEUROLOGICAL: Higher mental function: The patient is awake, alert, oriented to self, place and time. Patient is following commands. No aphasia and no neglect. Cranial nerves: The pupils are round, equal and reactive to light and accom modation. Visual knutson are full to confrontation throughout. Extraocular movement is intact no nystagmus is noted. Facial sensation is normal to touch throughout. The facial strength is normal throughout. Hearing is mildly decreased bilaterally to hand rub. Tongue is midline and moved [id number] without any difficulty. No dysarthria is noted. Shoulder shrug is normal bilaterally. Motor: The strength is 5 over 5 throughout. Normal tone and bulk. Cerebellum: Normal finger to nose bilaterally. Sensation: Sensation is normal to touch throughout. Reflexes (right/left): 1+ throughout-. Plantars are mute bilaterally. WORK-UP: Calcium is 9.5, AST of 21, ALP of 16 Connors virus PCR was not detected. CT of the head is reported as multiple previous craniotomy flap R redemo nstrated. Numerous bilateral meningioma R redemonstrated with varying degree of calcification. The anterior right frontal lobe 3.1 cm meningioma is unchanged in size and also on change in the degree of mild mass effect onto the adjacent anterior falx causing slight left forward bowling. Posterior left parafalcine meningioma minimally larger at 2.6 cm versus 2.4 cm previously. Superior to her fell sign meningioma minimally larger at 2.6 cm versus 2.3 cm previously. Numerous additional bilateral meningioma appear relatively unchanged. Otherwise no acute change identified. I personally reviewed the CT of the head and there is no acute subacute ischemia and there is no truncal hemorrhage appeared the patient has numerous meningioma seen CT angiography of the neck is reported as patent carotid vertebral arteries of the neck. Dominant left vertebral artery. CT angiography of the head is reported again dominant left vertebral artery. The right vertebral artery becomes even more hypoplastic after the PICA takeoff and the basilar artery is diffusely and diminutive in caliber correlate for any chronic symptoms of vertebrobasilar insufficiency. The posterior cerebral artery are supplied by the persistent origin from the internal carotid arteries at. Incidentally the patient's left sphenoid wing meningioma has mass effect, superiorly displaced in the left carotid terminus and M1 segment left MCA, overall similar appearance compared to MRI of 10/05/2020. No larger vessel intracranial arterial occlusion or significant stenosis is seen. Consider MRI if symptoms persist. Routine EEG on 03/20/21: Is abnormal. There is breach rhythm consistent with the patient's history of skull defect. Otherwise routine EEG is normal. There is no focal slowing, epileptiform discharges or seizure on the EEG. MRI the brain is reported as patient with known multiple meningioma bilaterally, ventricle area of necrosis suspected, slight interval growth - Labs CBC & Chem 7: 03/21/21 08:07 03/21/21 08:07 Labs: Abnormal Lab Results - Last 24 Hours (Table) 03/21/21 Range/Units 08:07 Glucose 116 H (74-99) mg/dL Assessment and Plan Assessment: * Transient Left sided weakness with episode of contraction of over the left groin and left chest region (and ED noticed tremor of bilateral upper extremity associated with it): Likely new onset seizure-focal more seizure without loss of consciousness (especially with hx of numerous meningioma). Unlikely stroke. 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 Patient is notified of side-effect of medication. 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 It is suspected by her neurosurgeon the patient has neurofibromatosis type II. * Recommend patient to have a copy of MRI Brain so she can have her neurologist and neurosurgeon review it for comparison. * We'll defer the rest of medical management to the primary team * Upon discharge the patient needs to follow-up with a neurosurgeon as well as neurologist as an outpatient within 1-2 weeks. The plan is discussed with the patient and her nurse. There is no further neurological work-up. Jefferson Ochoa M.D. Neuro-Hospitalist Time with Patient: Less than 30
--- NOTE | 2021-03-21 10:40 | P.DS ---
Providers Date of admission: 03/20/21 09:40 Expected date of discharge: 03/21/21 Attending physician: Meet Emery MD Consults: 03/20/21 09:50 Consult Physician Routine Consulting Provider: Jefferson Ochoa Consult Reason/Comments: CVA, Seizure Do you want consulting provider notified?: Already Contacted Primary care physician: Kian Elias [facility] Course: 70-year-old female with history of multiple brain meningiomas presented to emergency department due to sudden onset of left-sided weakness as well as generalized tremors that started today. Patient stated that he has some tremors yesterday but no weakness. This morning when she woke up around 5:00 in the morning she noted that her left side was weak. She could not use her left arm or leg. In addition she was having generalized tremors/shaking episodes that would last for several minutes and then subside spontaneously. She states that she feels those episodes coming when they do. Patient has significant history of multiple meningiomas that was diagnosed about 15 years ago. She had 3 brain surgeries for tumor resection in the past and most recently she was supposed to have a follow-up MRI this month to follow-up on the size of the meningiomas. In the emergency department patient had a head CT scan that showed numerous bilateral meningiomas, the anterior right frontal lobe 3.1 cm meningioma is not changed in size or the mild mass effect on to the adjacent anterior falx, posterior left parafalcine meningioma minimally larger at 2.6 cm versus 2.4 cm previously. Superior parafalcine meningioma minimally larger at 2.6 cm versus 2.3 cm previously. Numerous additional bilateral meningiomas appear relatively unchanged. Case was discussed with neurology who advised transferring patient to [facility] however due to no bed availability she was kept here for further management. Upon admission patient did not have any recurrent episodes of tremors. Her left-sided weakness improved significantly. She is able to walk and function by herself currently. She was seen by neurology who loaded patient with Keppra, ordered a brain MRI as well as an EEG. EEG did not show any seizure focus. MRI showed the same findings described in the computed tomography scan above. No stroke was found on the MRI. Upon discharge neurology recommended continuing patient on Keppra 500 mg by mouth twice a day. Patient was instructed to follow-up with her neurosurgeon and neurologist. She will be discharged home in stable condition. Time for discharge 35 minutes. Patient Condition at Discharge: Stable Plan - Discharge Summary Discharge Rx Participant: No New Discharge Prescriptions: New levETIRAcetam [Keppra] 500 mg PO BID 30 Days #60 tab Continue Multivitamins, Thera [Multivitamin (formulary)] 1 tab PO DAILY Losartan Potassium [Cozaar] 50 mg PO DAILY Ibuprofen 200 mg PO Q8H PRN PRN Reason: Pain Or Fever > 100.5 Jyotsna 500 mg PO DAILY Discharge Medication List Multivitamins, Thera [Multivitamin (formulary)] 1 tab PO DAILY 12/11/15 [History] Jyotsna 500 mg PO DAILY 03/20/21 [History] Ibuprofen 200 mg PO Q8H PRN 03/20/21 [History] Losartan Potassium [Cozaar] 50 mg PO DAILY 03/20/21 [History] levETIRAcetam [Keppra] 500 mg PO BID 30 Days #60 tab 03/21/21 [Rx] Follow up Appointment(s)/Referral(s): Kian Griffin MD [Primary Care Provider] - 1-2 days
[2021-03-21] MEDS: levETIRAcetam IV 500 MG in SODIUM CHLORIDE 0.9% 100 ML IVPB SCH (12:02)
[2021-03-21 14:49] LABS: Chol/HDL Ratio 3.86 Ratio
== END 2021-03-21 12:02 | disposition home or self-care (01) | DRG 93 ==
LOC: EC 07:06 → 3SCARD 09:40
PROVIDERS: ADMIT Internal Medicine; ATTEND Internal Medicine
DX: R25.1 Tremor, unspecified (principal); D32.9 Benign neoplasm of meninges, unspecified; I10 Essential (primary) hypertension; R53.1 Weakness; K21.9 Gastro-esophageal reflux disease without esophagitis; Q85.02 Neurofibromatosis, type 2; Z20.822 Contact with and (suspected) exposure to COVID-19; R29.706 NIHSS score 6; Z79.899 Other long term (current) drug therapy; Z85.828 Personal history of other malignant neoplasm of skin; Z87.891 Personal history of nicotine dependence; Z90.710 Acquired absence of both cervix and uterus
CPT/HCPCS: 36415; 70450; 70496; 70498; 70553; 71046; 80053; 80061; 83735; 84100; 84484; 85025; 85610; 85730; 87635; 93005; 95816; 96374; 99285

== ENCOUNTER 2021-03-29 17:55 | Emergency (ER) | payer BC, MEDICARE ==
[2021-03-29 18:07] VITALS: BP 151/81; PULSE 107; RESP 18; TEMP 97.6
[2021-03-29 20:19] LABS: Basophils % (A) 0 %; Eosinophils # (A) 0.3 k/uL (0-0.7); Eosinophils % (A) 2 %; HCT 41.1 % (34.0-46.0); HGB 13.1 gm/dL (11.4-16.0); Lymphocytes # (A) 1.7 k/uL (1.0-4.8); Lymphocytes % (A) 16 %; MCH 31.2 pg (25.0-35.0); MCHC 31.8 g/dL (31.0-37.0); MCV 98.2 fL (80.0-100.0); Mean Platelet Volume 7.1; Monocytes # (A) 0.7 k/uL (0-1.0); Monocytes % (A) 7 %; Neutrophils # (A) 7.5 k/uL (1.3-7.7); Neutrophils % (A) 73 %; Platelet Count 507 k/uL (150-450); RBC 4.19 m/uL (3.80-5.40); RDW 12.4 % (11.5-15.5); WBC 10.3 k/uL (3.8-10.6)
[2021-03-29 20:24] LABS: ALT 28 U/L (4-34); AST 38 U/L (14-36); African American GFR (CKD) >90 (>60 ml/min/1.73 sqM); Albumin 4.5 g/dL (3.5-5.0); Alkaline Phosphatase 105 U/L (38-126); Anion Gap 11 mmol/L; Blood Urea Nitrogen 17 mg/dL (7-17); Calcium 10.4 mg/dL (8.4-10.2); Carbon Dioxide 22 mmol/L (22-30); Chloride 104 mmol/L (98-107); Glucose 116 mg/dL (74-99); Non-African American GFR(CKD) >90 (>60 ml/min/1.73 sqM); Sodium 137 mmol/L (137-145); Total Bilirubin 0.7 mg/dL (0.2-1.3); Total Protein 8.4 g/dL (6.3-8.2)
[2021-03-29 20:25] LABS: Potassium 4.6 mmol/L (3.5-5.1)
[2021-03-29 20:35] LABS: Partial Thromboplastin Time 26.4 sec (22.0-30.0); Prothrombin Time 10.6 sec (9.0-12.0)
--- NOTE | 2021-03-29 21:13 | CT ---
EXAMINATION TYPE: CT brain wo con CT DLP: 1099.4 mGycm, Automated exposure control for dose reduction was used. DATE OF EXAM: 03/29/2021 8:48 PM COMPARISON: None.. Prior CT Brain from . CLINICAL INDICATION:Female, 70 years old with history of weakness, Weakness, especially LT side, hx m eningoma TECHNIQUE: Brain: Multiple axial CT images of the brain were obtained without IV contrast. FINDINGS: Brain: Extra-axial spaces: No significant change in multiple meningiomas with scattered calcifications from 03/20/2021. Ventricular system: Within normal limits Cerebral parenchyma: There is new vasogenic edema in the posterior aspect of the right frontal lobe a nd bilateral parietal lobes, right greater than left. No acute intraparenchymal hemorrhage. The sotelo -white junction is well differentiated. Cerebellum: Unremarkable. Mass effect: No evidence of midline shift. Intracranial vasculature: unremarkable Soft tissues: Normal. Calvarium/osseous structures: No depressed skull fracture. Post craniotomy changes noted. Paranasal sinuses and mastoid air cells: Stat complete opacification of the right frontal sinus. Visualized orbits: Orbital contents are intact. Findings communicated to Dr. Jesse Mas MD on 03/29/2021 9:[address] Óscar Pickett. IMPRESSION: 1. Interval development of vasogenic edema involving the posterior aspect of the right frontal lobe a nd bilateral parietal lobes right greater than left which is new from 03/20/2021. Etiology remains unce rtain considered MRI with IV contrast. 2. New leftward subfalcine herniation of 6 mm. 3. Multiple previous craniotomy flaps are redemonstrated meningiomas as described 03/20/2021.
--- NOTE | 2021-03-29 21:17 | XR ---
EXAMINATION TYPE: XR chest 2V DATE OF EXAM: 03/29/2021 8:45 PM COMPARISON:CT chest from same date 03/20/2021 CLINICAL INDICATION:Female, 70 years old with history of Weakness; TECHNIQUE: Frontal and lateral views of the chest. FINDINGS: Lungs/Pleura: There is no evidence of pleural effusion, focal consolidation, or pneumothorax. Pulmonary vascularity: Pulmonary vascular congestion. Heart/mediastinum: Cardiomediastinal silhouette is enlarged and stable. Musculoskeletal: No acute osseous pathology. IMPRESSION: Subtle Congestive heart failure changes suggested with borderline cardiomegaly and mild pulmonary vas cular congestion. Correlate with BNP.
--- NOTE | 2021-03-29 21:59 | ED ---
General Adult HPI - General Chief complaint: Neuro Symptoms/Deficit Stated complaint: L sided weakness Time Seen by Provider: 03/29/21 19:18 Source: patient, RN notes reviewed, old records reviewed Mode of arrival: ambulatory Limitations: no limitations - History of Present Illness Initial comments: Patient is a 70-year-old female with past medical history remarkable for meningiomas likely secondary to neurofibromatosis type II who presents emergency Department with left-sided weakness. Patient presented on 03/20/2021 with identical symptoms. She was a stroke activation at that time. Workup revealed meningiomas without any acute changes. These were known prior to her previous visit, and she was actually getting worked up through [facility] with neurosurgery and neurology there. She was eventually discharged home, however she returns today with progressive left-sided weakness that is somewhat recurrent. It is similar to her prior symptoms on the fifth and has been going on since discharge. Is not worsened much, but also has not improved. She denies any headaches, numbness, other acute weakness. She has difficulty walking. Denies any chest pain, shortness of breath, abdominal pain, nausea, vomiting. His no other acute complaints at this time. Presents emergency Department seeking possible placement and evaluation by physical therapy and occupational therapy. Her family as well as the patient agreed that her symp toms are no worse than the day after she was discharged. They have been stable. Imaging at that time showed no acute process, including herniation, bleeding. - Related Data Home Medications Medication Instructions Recorded Confirmed Multivitamins, Thera [Multivitamin 1 tab PO DAILY 12/11/15 03/20/21 (formulary)] Jyotsna 500 mg PO DAILY 03/20/21 03/20/21 Ibuprofen 200 mg PO Q8H PRN 03/20/21 03/20/21 Losartan Potassium [Cozaar] 50 mg PO DAILY 03/20/21 03/20/21 Previous Rx's Medication Instructions Recorded levETIRAcetam [Keppra] 500 mg PO BID 30 Days #60 tab 03/21/21 Allergies Allergy/AdvReac Type Severity Reaction Status Date / Time Sulfa (Sulfonamide Allergy Rash/Hives Verified 03/29/21 18:08 Antibiotics) codeine AdvReac Severe Nausea & Verified 03/29/21 18:08 Vomiting brimonidine AdvReac cotton Verified 03/29/21 18:08 mouth Review of Systems ROS Statement: Those systems with pertinent positive or pertinent negative responses have been documented in the HPI. Review of Systems: CONST: Denies fever EYES: Denies blurry vision ENT: Denies nasal congestion C/V: Denies Chest pain RESP: Denies shortness of breath GI: Denies abdominal pain : Denies dysuria SKIN: Denies rash. MSK: Denies joint pain. NEURO: Endorses left-sided weakness ROS Other: All systems not noted in ROS Statement are negative. 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, hemorrhoids, hx skin cancer History of Any Multi-Drug Resistant Organisms: None Reported Past Surgical History: Hysterectomy, Tonsillectomy Additional Past Surgical History / Comment(s): 3 brain surgeries for benign tumors, hemorrhoidectomy Past Anesthesia/Blood Transfusion Reactions: Motion Sickness, Postoperative Nausea & Vomiting (PONV) Additional Past Anesthesia/Blood Transfusion Reaction / Comment(s): severe PONV Past Psychological History: No Psychological Hx Reported Smoking Status: Former smoker Past Alcohol Use History: None Reported Past Drug Use History: None Reported - Past Family History Father Family Medical History: Cancer Additional Family Medical History / Comment(s): Colon cancer, ETOH abuse/cirrhosis of liver Mother Family Medical History: Cancer Additional Family Medical History / Comment(s): Esophageal/stomach cancer General Exam - General Exam Comments Initial Comments: General: Appears in no acute distress. HEAD: Normal with no signs of head trauma. EYES: PERRLA, EOMI, conjunctiva normal, no discharge. Pupils are 2 mm and equal bilaterally. ENT: Hearing grossly intact, normal oropharynx. RESPIRATORY: Clear breath sounds bilaterally. No wheezes, rales, or rhonchi. C/V: Mildly tachycardic with a regular rhythm. S1 and S2 auscultated. Peripheral pulses 2+ and intact throughout. No peripheral edema. ABD: Abd is soft, nontender, nondistended EXT: Normal range of motion, no obvious deformity SKIN: No rashes or lesions observed on exposed skin. NEURO: Alert and oriented 4. Cranial nerves II through XII are intact. No focal sensory deficits. Patient does have left upper extremity weakness with drift as well as left lower extremity weakness. Patient receives a total NIH today of 3, compared to NIH of 6 on prior presentation. GCS is 15. Limitations: no limitations Course Vital Signs 03/29/21 18:02 Temperature 97.6 F Pulse Rate 107 H Respiratory 18 Rate Blood Pressure 151/81 O2 Sat by Pulse 97 Oximetry Medical Decision Making - Medical Decision Making Based on the patient's presentation and physical exam, I'm concerned for acute neurological changes, however she seems to have stable symptoms over the last week or so. I discussed the case with our on-call neurologist, Dr. Davalos, who was in agreement that we should obtain a CT without contrast, but does not believe that further imaging is required at this time. We are evaluating for herniation or hemorrhage. We'll also obtain basic laboratory studies. The plan will be to admit is on his imaging is within normal limits. Patient's EKG shows no signs of acute ischemia. Laboratory studies are remarkable for negative Covid test. Chest x-ray revealed no acute cardiopulmonary process, however possible subtle ingestive heart failure changes. Brain CT showed acute findings. Patient now has worsening vasogenic edema as well as a new leftward subfalcine herniation 6 [address] I spoke with Dr. Davalos, and we agreed that the patient requires transfer to a facility with neurosurgery. Patient receives all of her care through [facility], and therefore we will reach out to them. [facility] did accept the transfer and it is an ED to ED transfer, and accepting physician is Zack Hernandez. Patient will be given 10 mg IV Decadron as well as 5 mg of meclizine and she states she gets motion sickness. She'll be transferred in serious condition. She is transferred via [facility] ambulance. - Lab Data Result diagrams: 03/29/21 20:06 03/29/21 20:06 Lab Results 03/29/21 03/29/21 03/29/21 Range/Units 20:06 20:06 20:06 WBC 10.3 (3.8-10.6) k/uL RBC 4.19 (3.80-5.40) m/uL Hgb 13.1 (11.4-16.0) gm/dL Hct 41.1 (34.0-46.0) % MCV 98.2 (80.0-100.0) fL MCH 31.2 (25.0-35.0) pg MCHC 31.8 (31.0-37.0) g/dL RDW 12.4 (11.5-15.5) % Plt Count 507 H (150-450) k/uL MPV 7.1 Neutrophils % 73 % Lymphocytes % 16 % Monocytes % 7 % Eosinophils % 2 % Basophils % 0 % Neutrophils # 7.5 (1.3-7.7) k/uL Lymphocytes # 1.7 (1.0-4.8) k/uL Monocytes # 0.7 (0-1.0) k/uL Eosinophils # 0.3 (0-0.7) k/uL Basophils # 0.0 (0-0.2) k/uL PT 10.6 (9.0-12.0) sec INR 1.0 (<1.2) APTT 26.4 (22.0-30.0) sec Sodium 137 (137-145) mmol/L Potassium 4.6 (3.5-5.1) mmol/L Chloride 104 (98-107) mmol/L Carbon Dioxide 22 (22-30) mmol/L Anion Gap 11 mmol/L BUN 17 (7-17) mg/dL Creatinine 0.51 L (0.52-1.04) mg/dL Est GFR (CKD-EPI)AfAm >90 (>60 ml/min/1.73 sqM) Est GFR (CKD-EPI)NonAf >90 (>60 ml/min/1.73 sqM) Glucose 116 H (74-99) mg/dL Plasma Lactic Acid Alejandro (0.7-2.0) mmol/L Calcium 10.4 H (8.4-10.2) mg/dL Total Bilirubin 0.7 (0.2-1.3) mg/dL AST 38 H (14-36) U/L ALT 28 (4-34) U/L Alkaline Phosphatase 105 (38-126) U/L Total Protein 8.4 H (6.3-8.2) g/dL Albumin 4.5 (3.5-5.0) g/dL Coronavirus (PCR) (Not Detectd) 03/29/21 03/29/21 Range/Units 20:06 20:53 WBC (3.8-10.6) k/uL RBC (3.80-5.40) m/uL Hgb (11.4-16.0) gm/dL Hct (34.0-46.0) % MCV (80.0-100.0) fL MCH (25.0-35.0) pg MCHC (31.0-37.0) g/dL RDW (11.5-15.5) % Plt Count (150-450) k/uL MPV Neutrophils % % Lymphocytes % % Monocytes % % Eosinophils % % Basophils % % Neutrophils # (1.3-7.7) k/uL Lymphocytes # (1.0-4.8) k/uL Monocytes # (0-1.0) k/uL Eosinophils # (0-0.7) k/uL Basophils # (0-0.2) k/uL PT (9.0-12.0) sec INR (<1.2) APTT (22.0-30.0) sec Sodium (137-145) mmol/L Potassium (3.5-5.1) mmol/L Chloride (98-107) mmol/L Carbon Dioxide (22-30) mmol/L Anion Gap mmol/L BUN (7-17) mg/dL Creatinine (0.52-1.04) mg/dL Est GFR (CKD-EPI)AfAm (>60 ml/min/1.73 sqM) Est GFR (CKD-EPI)NonAf (>60 ml/min/1.73 sqM) Glucose (74-99) mg/dL Plasma Lactic Acid Alejandro 1.2 (0.7-2.0) mmol/L Calcium (8.4-10.2) mg/dL Total Bilirubin (0.2-1.3) mg/dL AST (14-36) U/L ALT (4-34) U/L Alkaline Phosphatase (38-126) U/L Total Protein (6.3-8.2) g/dL Albumin (3.5-5.0) g/dL Coronavirus (PCR) Not Detected (Not Detectd) - EKG Data -: EKG Interpreted by Me EKG Comments: 12-lead Electrocardiogram Interpretation Note EKG was reviewed and interpreted by myself. 12-lead ECG performed at 2052 is interpreted by me as revealing normal sinus rhythm at a rate of 95 beats per minute. Left axis deviation. MD intervals 1 and 40 ms, QRS duration is 90 ms, QTc is 454 ms.. Patient is an isolated T-wave inversion in lead V3, but no other ST or T wave abnormalities to suggest myocardial ischemia or injury at this time.. R wave progression across the precordium was satisfactory. By my interpretation this EKG is non-diagnostic for acute ischemia. Disposition Clinical Impression: Meningioma, Brain herniation, Brain edema Disposition: OTHER INSTITUTION NOT DEFINED Condition: Serious Referrals: Kian Griffin MD [Primary Care Provider] - 1-2 days - Out of Hospital Transfer - Req. Specs Out of Hospital Transfer - Requested Specifics: Other Emergency Center (Transferred to [facility] for further care as we do not have neurosurgery at our facility.)
[2021-03-29] MEDS: MECLIZINE 12.5 MG TAB PO STA (22:13)
[2021-03-29] MEDS: SODIUM CHLORIDE 0.9% 1,000 ML IV STA (22:16)
[2021-03-29] MEDS: DEXAMETHASONE SOD PHOSPHATE 10 MG/ML 1 ML VIAL IVP STA (22:16)
--- NOTE | 2021-03-29 22:18 | ED ---
Medical Decision Making - Lab Data Result diagrams: 03/29/21 20:06 03/29/21 20:06 Lab Results 03/29/21 03/29/21 03/29/21 Range/Units 20:06 20:06 20:06 WBC 10.3 (3.8-10.6) k/uL RBC 4.19 (3.80-5.40) m/uL Hgb 13.1 (11.4-16.0) gm/dL Hct 41.1 (34.0-46.0) % MCV 98.2 (80.0-100.0) fL MCH 31.2 (25.0-35.0) pg MCHC 31.8 (31.0-37.0) g/dL RDW 12.4 (11.5-15.5) % Plt Count 507 H (150-450) k/uL MPV 7.1 Neutrophils % 73 % Lymphocytes % 16 % Monocytes % 7 % Eosinophils % 2 % Basophils % 0 % Neutrophils # 7.5 (1.3-7.7) k/uL Lymphocytes # 1.7 (1.0-4.8) k/uL Monocytes # 0.7 (0-1.0) k/uL Eosinophils # 0.3 (0-0.7) k/uL Basophils # 0.0 (0-0.2) k/uL PT 10.6 (9.0-12.0) sec INR 1.0 (<1.2) APTT 26.4 (22.0-30.0) sec Sodium 137 (137-145) mmol/L Potassium 4.6 (3.5-5.1) mmol/L Chloride 104 (98-107) mmol/L Carbon Dioxide 22 (22-30) mmol/L Anion Gap 11 mmol/L BUN 17 (7-17) mg/dL Creatinine 0.51 L (0.52-1.04) mg/dL Est GFR (CKD-EPI)AfAm >90 (>60 ml/min/1.73 sqM) Est GFR (CKD-EPI)NonAf >90 (>60 ml/min/1.73 sqM) Glucose 116 H (74-99) mg/dL Plasma Lactic Acid Alejandro (0.7-2.0) mmol/L Calcium 10.4 H (8.4-10.2) mg/dL Total Bilirubin 0.7 (0.2-1.3) mg/dL AST 38 H (14-36) U/L ALT 28 (4-34) U/L Alkaline Phosphatase 105 (38-126) U/L Total Protein 8.4 H (6.3-8.2) g/dL Albumin 4.5 (3.5-5.0) g/dL Coronavirus (PCR) (Not Detectd) 03/29/21 03/29/21 Range/Units 20:06 20:53 WBC (3.8-10.6) k/uL RBC (3.80-5.40) m/uL Hgb (11.4-16.0) gm/dL Hct (34.0-46.0) % MCV (80.0-100.0) fL MCH (25.0-35.0) pg MCHC (31.0-37.0) g/dL RDW (11.5-15.5) % Plt Count (150-450) k/uL MPV Neutrophils % % Lymphocytes % % Monocytes % % Eosinophils % % Basophils % % Neutrophils # (1.3-7.7) k/uL Lymphocytes # (1.0-4.8) k/uL Monocytes # (0-1.0) k/uL Eosinophils # (0-0.7) k/uL Basophils # (0-0.2) k/uL PT (9.0-12.0) sec INR (<1.2) APTT (22.0-30.0) sec Sodium (137-145) mmol/L Potassium (3.5-5.1) mmol/L Chloride (98-107) mmol/L Carbon Dioxide (22-30) mmol/L Anion Gap mmol/L BUN (7-17) mg/dL Creatinine (0.52-1.04) mg/dL Est GFR (CKD-EPI)AfAm (>60 ml/min/1.73 sqM) Est GFR (CKD-EPI)NonAf (>60 ml/min/1.73 sqM) Glucose (74-99) mg/dL Plasma Lactic Acid Alejandro 1.2 (0.7-2.0) mmol/L Calcium (8.4-10.2) mg/dL Total Bilirubin (0.2-1.3) mg/dL AST (14-36) U/L ALT (4-34) U/L Alkaline Phosphatase (38-126) U/L Total Protein (6.3-8.2) g/dL Albumin (3.5-5.0) g/dL Coronavirus (PCR) Not Detected (Not Detectd) Critical Care Time Critical Care Time: Yes Total Critical Care Time: 35 Critical Care Time: Upon my evaluation, this patient had a high probability of imminent or life- threatening deterioration due to intracranial vasogenic edema, herniation, neurological changes, which required my direct attention, intervention, and personal management. I have personally provided 35 minutes of critical care time exclusive of time spent on separately billable procedures. Time includes review of laboratory data, radiology results, discussion with consultants, and monitoring for potential decompensation. Interventions were performed as documented in my note. Disposition Clinical Impression: Meningioma, Brain herniation, Brain edema Disposition: OTHER INSTITUTION NOT DEFINED Condition: Serious Referrals: Kian Griffin MD [Primary Care Provider] - 1-2 days - Out of Hospital Transfer - Req. Specs Out of Hospital Transfer - Requested Specifics: Other Emergency Center (Transferred to [facility] for continuing care and escalation of care, as she requires neurosurgery which is not available a our facility.)
[2021-03-29 22:20] LABS: Appearance,Urine Cloudy (Clear); Bacteria,Urine Many /hpf; Bilirubin,Urine Negative (Negative); Blood,Urine Trace (Negative); Calcium Oxalate Crystals,Urine Many /hpf; Color,Urine Yellow; Glucose,Urine (UA) Negative (Negative); Hyaline Casts,Urine 13 /lpf (0-2); Ketones,Urine Negative (Negative); Leukocyte Esterase,Urine Large (Negative); Mucus,Urine Many /hpf; Nitrite,Urine Positive (Negative); PH, Urine 5.5 (5.0-8.0); Protein,Urine 1+ (Negative); RBC,Urine 11 /hpf (0-5); Specific Gravity,Urine 1.039 (1.001-1.035); Squamous Epithelial Cell,Urine 12 /hpf (0-4); WBC,Urine >182 /hpf (0-5)
== END 2021-03-29 23:18 | disposition other institution (70) ==
LOC: EC 17:55
DX: D32.9 Benign neoplasm of meninges, unspecified (principal); G93.5 Compression of brain; G93.6 Cerebral edema; I10 Essential (primary) hypertension; Z87.891 Personal history of nicotine dependence; Z88.2 Allergy status to sulfonamides; Z88.5 Allergy status to narcotic agent; Z88.8 Allergy status to other drugs, medicaments and biological substances; Z79.899 Other long term (current) drug therapy
CPT/HCPCS: 36415; 80053; 83605; 85025; 85610; 85730; 81001; 87086; 87635; 71046; 70450; 99285; 96374; J1100

== ENCOUNTER → 2021-05-31 | Outpatient (CLI) | payer BC ==
--- NOTE | 2021-05-31 12:45 | MR ---
EXAMINATION TYPE: MR brain wo/w con DATE OF EXAM: 05/31/2021 COMPARISON: MRI brain 03/20/2021 HISTORY: Meningioma / Neurofibromatosis TECHNIQUE: Multiplanar, multisequence images of the brain and brainstem is performed without and with IV contras t, utilizing 8 mL intravenous Gadavist . FINDINGS: Diffusion weighted images demonstrate no evidence of a recent infarct or other diffusion ab normality. There is no extra-axial fluid collection or new significant white matter signal abnormali ty. The ventricular system and cisternal spaces remain normal in size and appearance. The brain vol ume is age appropriate. Midline structures demonstrate normal morphology. The craniocervical junction appears within normal limits. Postcontrast images redemonstrate numerous homogeneous avidly enhancing masses scattered throughout t he extra-axial spaces bilaterally consistent with meningiomas. Largest right frontal meningioma measu res 3.2 x 2.9 cm X image 14 grossly stable from most recent MRI. Another large medial left temporal l esion measures 2.8 x 2.4 cm axial image 10 not significantly changed from most recent MRI. There is 2 .2 x 1.6 cm right cerebellopontine angle meningioma 7 redemonstrated stable. Some eccentric enhancing dural thickening or meningioma anterior temporal re gions is stable. Multiple enhancing masses superiorly redemonstrated. There is 2.3 cm right parietal lesion which is diminished in size axial image 26 on long axis versus 3.1 cm prior study with more ce ntral enhancement however noted. No definitive new enhancing masses. Some susceptibility artifact sup eriorly is redemonstrated. Dural venous sinuses remain patent. Globes are intact bilaterally. Nasal septum remains slightly humberto ated to right of midline. Patchy fluid signal in the anterior right ethmoid sinus is redemonstrated. IMPRESSION: Multiple enhancing extra-axial masses consistent with known meningiomas. No new or enlarg ing masses identified.
== END | disposition home or self-care (01) ==
LOC: RADMRIMAIN 09:34
PROVIDERS: ATTEND Neurological Surgery
DX: D42.9 Neoplasm of uncertain behavior of meninges, unspecified (principal)
CPT/HCPCS: 70553; A9585

== ENCOUNTER → 2021-08-14 | Outpatient (CLI) | payer BC ==
--- NOTE | 2021-08-14 13:06 | MR ---
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 FINDINGS: Diffusion weighted images demonstrate no evidence of a recent infarct or other diffusion ab normality. There is no extra-axial fluid collection or significant change in white matter signal abn ormality. The ventricular system and cisternal spaces are normal in size and appearance. The brain volume is age appropriate. Midline structures demonstrate normal morphology. The craniocervical junction appears within normal limits. Post contrast images demonstrate multiple extra-axial enhancing masses as noted on prior exam bilater ally consistent with meningiomas. Largest lesions measured. Right cerebellopontine angle mass measure s approximately 2.3 x 1.6 cm x 1.7 cm similar to prior. Sphenoid wing meningioma on the left measures 2.7 x 2.9 x 2.9 cm and shows minimal growth, previous measurement approximately 2.5 x 2.8 x 3.1 cm. Right frontal lesion 3.4 cm in AP dimension by 3.5 cm in cephalad to caudal dimension by 2.9 cm in tr ansverse, previous exam 3.6 cm in cephalad to caudal dimension by 3 cm in transverse by 3.2 cm in AP measurement. Focal cortical defect at the posterior aspect of the left parietal lobe posterior temporal lobe infer iorly shows a similar appearance. Inflammatory change present within the frontal sinus, ethmoid air cells. IMPRESSION: Some minimal interval growth may be present of multiple lesions although there are slight differences in technique, imaging planes which could alter measurements. Greater than 20 lesions are present. Sinus disease.
== END | disposition home or self-care (01) ==
LOC: RADMRIMAIN 09:02
PROVIDERS: ATTEND Neurological Surgery
DX: G93.9 Disorder of brain, unspecified (principal)
CPT/HCPCS: 70553; A9585

== ENCOUNTER → 2022-02-17 | Outpatient (CLI) | payer BC ==
--- NOTE | 2022-02-17 09:00 | MR ---
EXAMINATION TYPE: MR brain wo/w con DATE OF EXAM: 02/17/2022 COMPARISON: NONE HISTORY: F/U comparison for Neurofibromatosis. TECHNIQUE: Multiplanar, multisequence images of the brain and brainstem is performed without and with IV contras t, utilizing 9 mL intravenous Gadavist . FINDINGS: Diffusion weighted images demonstrate no evidence of a recent infarct or other diffusion ab normality. The ventricular system and cisternal spaces remain normal in size and appearance. The bra in volume remains age appropriate. Few tiny foci of T2 hyperintensity are seen throughout the white m atter bilaterally. Patient's nonspecific in appearance and distribution. Midline structures redemonstrate normal morphology. The craniocervical junction remains within natalia l limits. Postcontrast images redemonstrate numerous homogeneous avidly enhancing masses scattered throughout t he extra-axial spaces bilaterally consistent with meningiomas. Largest right frontal meningioma measu res 3.4 x 3.5 cm axial image 15 grossly stable from most recent MRI. Another large medial left tempor al lesion measures 2.8 x 2.7 cm axial image 11 not significantly changed from most recent MRI. There is 2.2 x 1 1.5 cm right cerebellopontine angle meningioma axial image 7 redemonstrated and stable. There is 2.3 cm high right parietal lesion which is stable in size axial image 26 on long axis versus most recent prior study. Additional scattered smaller avid enhancing ma sses and peripheral dural enhancement and are unchanged from most recent study with focal area of enc ephalomalacia left inferior parietal lobe axial image 12 redemonstrated . Dural venous sinuses remain patent. Globes are intact bilaterally. Nasal septum remains deviated to r ight of midline. Fluid signal in the anterior ethmoid sinuses right greater than left is redemonstrat ed. IMPRESSION: Multiple enhancing extra-axial masses consistent with known meningiomas correlating with history of neurofibromatosis type II. No new or enlarging enhancing masses identified. No significant change from most recent MRI.
== END | disposition home or self-care (01) ==
LOC: RADMRIMAIN 08:05
PROVIDERS: ATTEND Neurological Surgery
DX: G93.9 Disorder of brain, unspecified (principal); Q85.02 Neurofibromatosis, type 2
CPT/HCPCS: 70553; A9585

== ENCOUNTER → 2022-04-11 | Outpatient (CLI) | payer BC ==
--- NOTE | 2022-04-11 07:54 | US ---
EXAMINATION TYPE: US abdomen limited DATE OF EXAM: 04/11/2022 COMPARISON: NONE CLINICAL HISTORY: R10.13 EPIGASTRIC PAIN. Epigastric pain. TECHNIQUE: Multiple sonographic images of the right upper quadrant are obtained. FINDINGS: EXAM MEASUREMENTS: Liver Length: 20.9 cm Gallbladder Wall: 0.2 cm CBD: 0.6 cm Right Kidney: 10.7 x 4.4 x 4.1 cm Pancreas: Echogenic in appearance Liver: Enlarged in size . Normal less than 15.5 cm. Gallbladder: Multiple mobile stones Evidence for sonographic Johnson's sign: neg CBD: wnl Right Kidney: Lower pole echogenic focus with shadow = 0.7 cm IMPRESSION: 1. Cholelithiasis. 2. Hepatomegaly 3. Inferior pole nonobstructing renal stone
== END | disposition home or self-care (01) ==
LOC: RADUSWWP 06:59
PROVIDERS: ATTEND Internal Medicine
DX: K80.20 Calculus of gallbladder without cholecystitis without obstruction (principal); N20.0 Calculus of kidney; R16.0 Hepatomegaly, not elsewhere classified
CPT/HCPCS: 76705

== ENCOUNTER 2022-08-29 07:44 | Day surgery (SDC) | payer BC ==
[2022-08-27 10:06] VITALS: BMI 34.7
--- NOTE | 2022-08-29 06:07 | P.GSHP ---
History of Present Illness H&P Date: 08/29/22 CHIEF COMPLAINT: Cholecystitis HISTORY OF PRESENT ILLNESS: The patient is a 72-year-old female who presents with history of epigastric including right upper quadrant abdominal pain. She underwent diagnostic studies for her gallbladder. Separately her clinical picture was consistent with cholecystitis. Now she presents for surgical intervention. PAST MEDICAL HISTORY: Please see list PAST SURGICAL HISTORY: Please see list MEDICATIONS: Please see list ALLERGIES: Please see list SOCIAL HISTORY: Please see list FAMILY HISTORY: Please see list REVIEW OF ORGAN SYSTEMS: CONSTITUTIONAL: No reports of fevers or chills. HEENT: Denies any troubles with the vision or hearing. ENDOCRINE: No reports of hypothyroidism. No diabetes. RESPIRATORY: No recent pneumonias. CARDIOVASCULAR: Denies chest pain or palpitations GI: No blood in stools or constipation. MUSCULOSKELETAL: Has occasional joint pain including back pain. NEURO: No seizure disorders or headaches. No recent stroke. PSYCH: No depression or suicidal ideation. GENITOURINARY: No active blood in urine. No urinary hesitancy. HEMATOLOGIC: No personal or family history of DVTs or pulmonary emboli. SKIN: No skin cancer. PHYSICAL EXAM: VITAL SIGNS: Afebrile vital signs stable GENERAL: Well-developed pleasant in no acute distress. HEENT: No scleral icterus. Extraocular movements grossly intact. Moist buccal mucosa. NECK: Supple without lymphadenopathy. CHEST: Unlabored respirations. Equal bilateral excursions. CARDIOVASCULAR: Regular rate regular rhythm rhythm. Distal 2+ pulses. ABDOMEN: Soft, nondistended. Tender along the epigastrium and right upper quadrant. MUSCULOSKELETAL: No clubbing, cyanosis, or edema. NEURO: Cranial nerves II to XII within normal limits. No focal or lateralizing signs. PSYCH: Alert and oriented to person, place and time. SKIN: Well-perfused good skin turgor. ASSESSMENT: 1. Epigastric and right upper quadrant abdominal pain 2. Chronic cholecystitis 3. Symptomatic gallstones. PLAN: 1. Will need a robotic cholecystectomy possible open. Benefits and risks were described. 2. Heparin for DVT prophylaxis 5000 units. 3. Antibiotic prophylaxis. 4. CBC and CMP on day of procedure 5. Non-narcotic pre and post op pain management reviewed. 6. Indocyanine green for biliary imaging. Past Medical History Past Medical History: Cancer, GERD/Reflux, Hypertension, Skin Disorder Additional Past Medical History / Comment(s): Headaches from tumors on brain lining- Neurofibromatosis Type 2, hemorrhoids, hx skin cancer. History of Any Multi-Drug Resistant Organisms: None Reported Past Surgical History: Hysterectomy, Tonsillectomy Additional Past Surgical History / Comment(s): 3 brain surgeries for benign tumors, hemorrhoidectomy Past Anesthesia/Blood Transfusion Reactions: Motion Sickness, Postoperative Nausea & Vomiting (PONV) Additional Past Anesthesia/Blood Transfusion Reaction / Comment(s): severe PONV Smoking Status: Former smoker - Past Family History Father Family Medical History: Cancer Additional Family Medical History / Comment(s): Colon cancer, ETOH abuse/cirrhosis of liver Mother Family Medical History: Cancer Additional Family Medical History / Comment(s): Esophageal/stomach cancer Medications and Allergies Home Medications Medication Instructions Recorded Confirmed Type Multivitamins, Thera [Multivitamin 1 tab PO DAILY 12/11/15 08/27/22 History (formulary)] Jyotsna 500 mg PO DAILY 03/20/21 08/27/22 History Losartan Potassium [Cozaar] 50 mg PO DAILY 03/20/21 08/27/22 History Acetaminophen Tab [Tylenol Tab] 1,000 mg PO BID PRN 05/09/22 08/27/22 History Ondansetron Odt [Zofran Odt] 4 mg PO Q8HR PRN #15 tab 05/09/22 08/27/22 Rx Pantoprazole [Protonix] 40 mg PO DAILY 05/09/22 08/27/22 History Cider Vinegar [Apple Cider Vinegar] 300 mg PO DAILY 08/27/22 08/27/22 History Allergies Allergy/AdvReac Type Severity Reaction Status Date / Time Sulfa (Sulfonamide Allergy Rash/Hives Verified 08/27/22 09:30 Antibiotics) codeine AdvReac Severe Nausea & Verified 08/27/22 09:30 Vomiting brimonidine AdvReac cotton Verified 08/27/22 09:30 mouth
[~2022-08-29 07:44] MED LIST: ACETAMINOPHEN TAB 500 MG TAB PO PRN; HEPARIN SODIUM,PORCINE/PF 5,000 UNIT/0.5 ML SYRINGE SQ PRN; INDOCYANINE GREEN 25 MG VIAL IV STA
[2022-08-29] MEDS ORDERED: MIDAZOLAM 2 MG/2 ML VIAL IV PRN (07:53)
[2022-08-29] MEDS ORDERED: fentaNYL (PF) 50 MCG/ML 2 ML AMP IV PRN (07:53)
[2022-08-29] MEDS ORDERED: ONDANSETRON 4 MG/2 ML VIAL IVP ONE ×2 (07:53→12:02)
[2022-08-29] MEDS ORDERED: LACTATED RINGERS 1,000 ML IV SCH (07:53)
[2022-08-29] MEDS ORDERED: DEXAMETHASONE SOD PHOSPHATE 4 MG/ML 1 ML VIAL IV ONE (07:53)
[2022-08-29] MEDS ORDERED: LACTATED RINGERS 1,000 ML IV ONE ×2 (08:08→10:26)
[2022-08-29 08:31] LABS: Basophils % (A) 0 %; Eosinophils # (A) 0.3 k/uL (0-0.7); Eosinophils % (A) 4 %; HCT 40.1 % (34.0-46.0); HGB 13.1 gm/dL (11.4-16.0); Lymphocytes # (A) 2.5 k/uL (1.0-4.8); Lymphocytes % (A) 36 %; MCH 30.9 pg (25.0-35.0); MCHC 32.6 g/dL (31.0-37.0); MCV 94.7 fL (80.0-100.0); Mean Platelet Volume 6.9; Monocytes # (A) 0.3 k/uL (0-1.0); Monocytes % (A) 4 %; Neutrophils # (A) 3.9 k/uL (1.3-7.7); Neutrophils % (A) 55 %; Platelet Count 403 k/uL (150-450); RBC 4.24 m/uL (3.80-5.40); RDW 12.6 % (11.5-15.5)
[2022-08-29 08:53] LABS: ALT 23 U/L (4-34); AST 24 U/L (14-36); African American GFR (CKD) >90 (>60 ml/min/1.73 sqM); Albumin 4.5 g/dL (3.5-5.0); Alkaline Phosphatase 85 U/L (38-126); Anion Gap 10 mmol/L; Blood Urea Nitrogen 19 mg/dL (7-17); Calcium 9.7 mg/dL (8.4-10.2); Carbon Dioxide 23 mmol/L (22-30); Chloride 106 mmol/L (98-107); Glucose 103 mg/dL (74-99); Non-African American GFR(CKD) >90 (>60 ml/min/1.73 sqM); Potassium 4.7 mmol/L (3.5-5.1); Sodium 139 mmol/L (137-145); Total Bilirubin 0.7 mg/dL (0.2-1.3)
[2022-08-29] MEDS ORDERED: NEOSTIGMINE 1 MG/ML 10 ML VIAL ONE (09:02)
[2022-08-29] MEDS ORDERED: LIDOCAINE 2% INJ 20 MG/ML (2 ML VIAL) ONE (09:02)
[2022-08-29] MEDS ORDERED: SUCCINYLCHOLINE CHLORIDE 200 MG/10 ML VIAL IV ONE (09:02)
[2022-08-29] MEDS ORDERED: GLYCOPYRROLATE 0.2 MG/ML 2 ML VIAL ONE (09:02)
[2022-08-29] MEDS ORDERED: PHENYLEPHRINE-0.9% NACL SYG 1,000 MCG/10 ML SYRINGE ONE (09:02)
[2022-08-29] MEDS ORDERED: KETOROLAC 15 MG/ML 1 ML VIAL ONE (09:02)
[2022-08-29] MEDS ORDERED: ROCURONIUM 10 MG/ML (5 ML VIAL) IV ONE (09:02)
[2022-08-29] MEDS ORDERED: LIDOCAINE 0.5%-EPI 1:200,000 50 ML VIAL SQ ONE (09:30)
[2022-08-29 10:43] VITALS: TEMP 96.8
[2022-08-29 11:28] VITALS: RESP 16
[2022-08-29 11:48] VITALS: BP 137/79; PULSE 64
[2022-08-29] MEDS ORDERED: ONDANSETRON 4 MG/2 ML VIAL ONE (11:49)
--- NOTE | 2022-09-01 10:11 | P.OP ---
Date of Procedure: 08/29/22 Description of Procedure: SURGEON: JINA CAMARGO MD PREOPERATIVE DIAGNOSES: 1. Symptomatic gallstones 2. Morbid obesity due to excess calories, BMI 36.0 3. Neurofibromatosis type 2 4. Hypertensive heart disease 5. Gastroesophageal reflux disease 6. Postop nausea or vomiting, severe 7. Personal history of brain tumors POSTOPERATIVE DIAGNOSES: 1. Symptomatic gallstones 2. Morbid obesity due to excess calories, BMI 36.0 3. Neurofibromatosis type 2 4. Hypertensive heart disease 5. Gastroesophageal reflux disease 6. Postop nausea or vomiting, severe 7. Personal history of brain tumors 8. Hepatomegaly with fatty liver disease OPERATION: Robotic-assisted da Sherin Xi laparoscopic cholecystectomy, multiport with FIREFLY ESTIMATED BLOOD LOSS: 5 mL. SPECIMENS REMOVED: Gallbladder. COMPLICATIONS: None. OPERATIVE FINDINGS: 1. Hepatomegaly with fatty liver disease INDICATIONS: The patient is a 72-year-old female who presents with symptomatic gallstones. Robotic assisted laparoscopic approach was described. Benefits and risks of the procedure including but not limited to bleeding, infection, injury to the biliary tree was described. Informed consent was obtained. DESCRIPTION OF PROCEDURE: Patient was brought to the operating room, placed in supine position. After general induction, the abdomen had been prepped and draped in standard sterile fashion. The robotic da Sherin XI system was primed. After a timeout protocol was performed, the patient had been prepped and draped in standard sterile fashion. The patient was injected with indocyanine green. A 5 mm 0 degrees laparoscopic trocar entry was performed along the left upper quadrant. The abdomen insufflated to 15 mmHg pressure which was tolerated well. Diagnostic laparoscopy demonstrated no injury to bowel viscera or mesentery. The liver surface was unremarkable. Next, two 8 mm robotic ports were placed along the right upper abdomen. The camera 8-mm port was maintained along the epigastrium. A 12 mm port was placed along the left upper abdominal wall after exchanging the 5 mm port. Please note that the ports were placed at least 10 to 15 cm away from the target anatomy of the gallbladder. The robot was docked along the left lateral abdomen. The patient was repositioned in reverse Trendelenburg position. Using a grasper for arm 3, a grasper for arm 4, including hook cautery for arm 1, the robotic system was docked and primed as described. Instruments were interchanged by the membership assistant including hook cautery, Bovie cautery and clip appliers. I had sat at the console. Dome down technique was performed from the gallbladder fundus towards the infundibulum along the hepatic fossa. The liver bed was hemostatic after addressing hepatic attachment using cautery. Next attention was brought to the infundibulum and cystic structures. The infundibulum and cystic duct were dissected free from surrounding tissues. The cystic duct was isolated. FIREFLY was used to identify the cystic artery and cystic structures. A critical view of safety was obtained. Large PLASTIC clips were used throughout the entire case. Using a clip mail list librarian, 2 clips were placed at the junction of the infundibulum and cystic duct. The cystic duct was divided between clips. Next, the cystic artery was similarly clipped and cauterized. Electro-Bovie cautery was used to remove the gallbladder from the hepatic fossa. Hemostasis was checked and found to be adequate. The robot was undocked. I re-scrubbed into the case. Using a 10 mm Endo Catch bag via the left upper quadrant incision, the specimen was removed from the abdominal cavity. All pneumoperitoneum instruments were evacuated from the abdominal cavity. The incisions were reapproximated using 4-0 Monocryl in an interrupted subcuticular fashion. Fascial defects were less than 8 mm in size. Please note along the trocar sites, local anesthetic was placed as a field block prior to insertion of all instruments. Liquid glue was applied to the skin. At the end of the procedure needle, sponge, and instrument count had been verified correct by the rn surgical. The patient was transferred to postanesthesia care unit in stable condition. Intraoperative films were shared with the patient's family. Plan - Discharge Summary Discharge Rx Participant: Yes New Discharge Prescriptions: New Simethicone [Gas-X] 125 mg PO AC-TID PRN #20 capsule PRN Reason: Pain Acetaminophen Tab [Tylenol Tab] 1,000 mg PO Q6HR PRN #30 tablet PRN Reason: Pain Continue Multivitamins, Thera [Multivitamin (formulary)] 1 tab PO DAILY Losartan Potassium [Cozaar] 50 mg PO DAILY Jyotsna 500 mg PO DAILY Ondansetron Odt [Zofran ODT] 4 mg PO Q8HR PRN #15 tab PRN Reason: Nausea Cider Vinegar [Apple Cider Vinegar] 300 mg PO DAILY Pantoprazole [Protonix] 40 mg PO DAILY Discontinued Acetaminophen Tab [Tylenol Tab] 1,000 mg PO BID PRN PRN Reason: Headache Discharge Medication List Multivitamins, Thera [Multivitamin (formulary)] 1 tab PO DAILY 12/11/15 [History] Jyotsna 500 mg PO DAILY 03/20/21 [History] Losartan Potassium [Cozaar] 50 mg PO DAILY 03/20/21 [History] Ondansetron Odt [Zofran ODT] 4 mg PO Q8HR PRN #15 tab 05/09/22 [Rx] Pantoprazole [Protonix] 40 mg PO DAILY 05/09/22 [History] Cider Vinegar [Apple Cider Vinegar] 300 mg PO DAILY 08/27/22 [History] Acetaminophen Tab [Tylenol Tab] 1,000 mg PO Q6HR PRN #30 tablet 08/29/22 [Rx] Simethicone [Gas-X] 125 mg PO AC-TID PRN #20 capsule 08/29/22 [Rx] Follow up Appointment(s)/Referral(s): Jina Camargo MD [STAFF PHYSICIAN] - 09/02/22 (Telehealth) Patient Instructions/Handouts: *[facility] - Laparoscopic Cholecystectomy Discharge Instructions, *[facility] - Managing Your Pain After Surgery Without Opioids, *[facility] - (Anesthesia) Discharge Instructions Outpatient Surgery, Low Fat Diet (DC) Activity/Diet/Wound Care/Special Instructions: [facility]AD[facility] - DR WILL CALL YOU BETWEEN 8 am to 8 pm Recommend low-fat diet for the next 2 days. No lifting over 10 pounds in 2 weeks until September 12. May shower. No bath tub soaks for two weeks until September 12. Diet as tolerated. Use Tylenol, simethicone and ibuprofen or Aleve scheduled for the next 24-48 hours for best pain relief. Use ice along incisions for today to prevent swelling. Discharge Disposition: HOME SELF-CARE
== END 2022-08-29 12:15 | disposition home or self-care (01) ==
LOC: OR 07:44
PROVIDERS: ATTEND Surgery Plastic and Reconstructive Surgery
DX: K80.12 Calculus of gallbladder with acute and chronic cholecystitis without obstruction (principal); R16.0 Hepatomegaly, not elsewhere classified; I11.9 Hypertensive heart disease without heart failure; Q85.02 Neurofibromatosis, type 2; E66.9 Obesity, unspecified; Z68.36 Body mass index [BMI] 36.0-36.9, adult; K21.9 Gastro-esophageal reflux disease without esophagitis; Z85.841 Personal history of malignant neoplasm of brain; Z85.828 Personal history of other malignant neoplasm of skin; Z90.49 Acquired absence of other specified parts of digestive tract; Z87.891 Personal history of nicotine dependence; Z80.0 Family history of malignant neoplasm of digestive organs; Z83.79 Family history of other diseases of the digestive system; Z79.899 Other long term (current) drug therapy; Z88.2 Allergy status to sulfonamides; Z88.5 Allergy status to narcotic agent
CPT/HCPCS: 47563; C9776; S2900; 80053; 85025; 88304

== ENCOUNTER → 2022-09-15 | Outpatient (CLI) | payer BC ==
--- NOTE | 2022-09-15 21:12 | MR ---
EXAMINATION TYPE: MR brain wo/w con DATE OF EXAM: 09/15/2022 8:28 PM CLINICAL INDICATION:Female, 72 years old with history of G93.9 DISORDER OF BRAIN, UNSPECIFIED; NF2 - Hx of 3 Brain Surgeries - Dizziness COMPARISON: 02/17/2022 and priors. TECHNIQUE: Multi planar, multi sequence imaging was performed through the brain including: T1, T2, In version recovery, susceptibility weighted imaging and gradient echo imaging and Diffusion weighted im aging. The patient was then given intravenous contrast and multi planar, T1 fat-saturation images wer e obtained. IV Contrast: 8.5 cc Gadavist FINDINGS: Redemonstration of multiple extra-axial masses scattered throughout the brain compatible with meningi omas. Examples include The largest in the left middle cranial fossa usually measuring up to 26 mm. Ri ght cerebellopontine angle measuring 25 mm. Left posterior occipital parietal region measuring 22 mm. There is Similarly lesions are calcified including one near the skull vertex which is low signal. Po stcontrast enhancement demonstrates enhancement as well as lesions some of them homogenous others sli ghtly more heterogenous. Postsurgical changes to the skull including examples of craniotomy changes i n the right frontal and left posterior lateral.. Diffusion-weighted imaging shows no evidence of rest ricted diffusion to suggest acute/subacute infarct. Intracranial arterial flow voids are maintained. Midline structures show no abnormality. Scattered foci of high T2 signal intensity are seen within th e periventricular white matter. The susceptibility weighted images do not reveal any evidence for cassia ro-hemorrhage. The bone marrow signal is within normal limits. Paranasal sinuses and mastoid air cells: No significant paranasal sinus disease. Visualized orbits: Orbital contents are intact. IMPRESSION: Multiple enhancing extra-axial masses consistent with known meningiomas again correlating with histor y of neurofibromatosis type II. Overall the size is relatively stable compared to immediate prior.
== END | disposition home or self-care (01) ==
LOC: RADMRIMAIN 19:24
DX: G93.9 Disorder of brain, unspecified (principal); Q85.02 Neurofibromatosis, type 2
CPT/HCPCS: 70553; A9585

== ENCOUNTER → 2023-02-13 | Outpatient (CLI) | payer BC ==
--- NOTE | 2023-02-20 11:33 | MR ---
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 TECHNIQUE: Multiplanar, multiecho imaging on a 3.0 Ciera magnet is performed through the brain. Stud y is performed within 24 hours of arrival to the hospital. The craniovertebral junction is normal. The pituitary is normal. Diffusion-weighted imaging is performed. No abnormal hyperintensity is present to suggest an acute i ntracranial infarct or acute ischemic change. Minimal increased signal on diffusion may be present wi thin some meningiomas. Best visualized on the postcontrast T1-weighted images are multiple bilateral enhancing extra-axial l esions compatible with multiple meningiomas. Largest areas would include a left middle cranial fossa measuring 2.5 x 3.2 cm the right cerebellar pontine angle measuring 1.6 x 2.4 cm. In the right fronta l region measuring 3.7 x 3.0 cm. Multiple additional meningiomas are near the vertex slightly greater in number on the right. Midline falx meningiomas are present. Ventricles and sulci are appropriate for the patient age. No hydrocephalus is evident. IMPRESSION: 1. Multiple bilateral meningiomas. These appear stable from 09/15/2022. There is some local mass effect on the adjacent brain. No significant vasogenic edema evident. 2. There is some minimal midline shift adjacent to the right frontal meningioma. However, this appear s stable from the comparison.
== END | disposition home or self-care (01) ==
LOC: RADMRIMAIN 18:21
PROVIDERS: ATTEND Neurological Surgery
DX: Q85.02 Neurofibromatosis, type 2 (principal); D32.0 Benign neoplasm of cerebral meninges
CPT/HCPCS: 70553; A9585

== ENCOUNTER → 2023-12-10 | Outpatient (CLI) | payer BC ==
--- NOTE | 2023-12-14 13:04 | MR ---
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 CONTRAST: Performed utilizing 8.5 mL intravenous Gadavist gadolinium contrast. TECHNIQUE: Multiplanar, multiecho imaging on a 3.0 Ciera magnet is performed through the brain. Stud y is performed within 24 hours of arrival to the hospital. The craniovertebral junction is normal. The pituitary is normal. Diffusion-weighted imaging is performed. No abnormal hyperintensity is present to suggest an acute i ntracranial infarct or acute ischemic change. There are multiple extra-axial masses compatible with meningiomas. These were present previously. Reference lesions: 1. Frontal lobe measuring 3.7 x 3.0. This is stable. 2. Left anterior medial middle cranial fossa measuring 3.5 x 2.4 cm. Previous measurement 3.2 x 2.5. 3. Right cerebellar pontine angle measuring 1.7 x 2.6 cm. Previous measurement 1.6 x 2.4 cm. Multiple additional lesions including occipital vertex bilaterally, along the falx, along the dural m argins on the left and the right at the right vertex and right middle cranial fossa. The minimal midline shift from the frontal lobe meningioma appears stable. No intraparenchymal lesions identified. Ventricles and sulci are appropriate for the patient age. No expansion or erosion of the cerebellar pontine angles are evident IMPRESSION: 1. Multiple bilateral supratentorial and infratentorial meningiomas. Reference lesions appear stable. [facility], Workstation: [id number], 12/14/2023 1:02 PM
== END | disposition home or self-care (01) ==
LOC: RADMRIMAIN 11:04
PROVIDERS: ATTEND Neurological Surgery
DX: D42.9 Neoplasm of uncertain behavior of meninges, unspecified
CPT/HCPCS: 70553

== ENCOUNTER 2024-10-05 08:33 | Day surgery (SDC) | payer MEDICARE, BC ==
[~2024-10-05 08:33] MED LIST changes: -ACETAMINOPHEN TAB 500 MG TAB PO PRN; -HEPARIN SODIUM,PORCINE/PF 5,000 UNIT/0.5 ML SYRINGE SQ PRN; -INDOCYANINE GREEN 25 MG VIAL IV STA; +TETRACAINE 0.5% OPHTH (PF) DROPS 4 ML BTL OP PRN
[2024-10-05] MEDS: IV FLUID CONTINUATION 1,000 ML IV ONE (10:01)
[2024-10-05 10:09] VITALS: TEMP 97.4
[2024-10-05] MEDS: CYCLOPENTOLATE 1% OPHTH SOLN 2 ML BTL OP PRN (10:14)
[2024-10-05] MEDS: PHENYLEPHRINE 2.5% OPHTH DRP 2ML OP PRN (10:19)
[2024-10-05] MEDS: LACTATED RINGERS 1,000 ML IV SCH (10:43)
[2024-10-05] MEDS ORDERED: MIDAZOLAM 2 MG/2 ML VIAL ONE (11:22)
[2024-10-05] MEDS: EPINEPHrine (PF) 0.3 ML in BALANCED SALT IRRIG SOLN COMB2 500 ML IRRIGATION ONE (11:31)
[2024-10-05] MEDS: HYALURONATE SODIUM INTRAOCULAR 1 EACH SYRINGE (12MG/ML) INTRAOCULA ONE (11:32)
[2024-10-05] MEDS: LIDOCAINE 1% (PF) 10MG/ML VIAL MISCELLANE ONE (11:33)
[2024-10-05] MEDS: MOXIFLOXACIN HCL 0.5% DROPS 3 ML BTL OP PRN (11:33)
[2024-10-05] MEDS: TIMOLOL 0.5% OPHTH DROPS 5 ML BTL OP PRN (11:33)
[2024-10-05] MEDS: BALANCED SALT IRRIG SOLN COMB2 15 ML IRRIG.SOLN INTRAOCULA ONE (11:33)
--- NOTE | 2024-10-05 11:59 | P.OP ---
Date of Procedure: 10/05/24 Preoperative Diagnosis: NS & PSC Postoperative Diagnosis: same Procedure(s) Performed: PIOL, OD Implants: [id number] 20.00 Anesthesia: MAC Surgeon: Brian Malagon Pathology: none sent Condition: stable Disposition: same day Indications for Procedure: blurry vision Operative Findings: no complications
[2024-10-05 12:11] VITALS: RESP 16
[2024-10-05 12:20] VITALS: BP 154/91; PULSE 80
--- NOTE | 2024-10-06 00:47 | OP ---
OPERATIVE REPORT DATE OF SERVICE : 10/05/2024 PROCEDURE: Phacoemulsification of cataract and intraocular lens implant of the right eye. PREOPERATIVE DIAGNOSES: Nuclear sclerosis, cortical sclerosis, and regular astigmatism. POSTOPERATIVE DIAGNOSES: Nuclear sclerosis, cortical sclerosis, and regular astigmatism. ANESTHESIA: Topical. ESTIMATED BLOOD LOSS: None. SPECIMEN TAKEN: None. NARRATIVE: After obtaining the appropriate consent, the patient was brought to the operating room. There, she was placed under cardiac monitoring and prepped and draped in the usual sterile manner. She was approached from the right temporal side and using previously acquired corneal topography information, the axis of 161 degrees was identified and marked with [facility] axis marker. At the 11 o'clock position, an MVR blade was used to create a paracentesis port. Through this opening, 1% Xylocaine MPF 50:50 mix with balanced salt solution was injected into the anterior chamber. This was stabilized by Amvisc. At the 9 o'clock position, a 2.5 mm keratome was used to create a self-sealing corneal flap incision. Through this opening, a cystotome was introduced to begin a continuous tear capsulorrhexis, which was then completed using the Utrata forceps. Hydrodissection and hydrodelineation of the lens were accomplished with balanced salt solution. Phacoemulsification lens utilizing Phacochop was accomplished in 9.24 seconds at 9.9% power. Additional Xylocaine MPF was instilled into the anterior chamber. This was followed by removal of the remaining cortical material under irrigation and aspiration as well as careful polishing of the posterior capsule in the capsule vacuum mode. Additional Amvisc was then used to stabilize the capsular bag and a Michael and Michael model KPU090, 20.0 diopter posterior chamber intraocular lens was then inserted into the capsular bag without difficulty. The remaining viscoelastic was removed from in and around the intraocular lens and the lens was then aligned with the baptiste on the cornea using the tip of the irrigation aspiration instrument. All remaining viscoelastic was removed from the anterior chamber. The eye was then brought to normal intraocular pressure through the paracentesis port. All wounds were hydrated to maintain watertight integrity and stability of the intraocular lens. She then received 2 drops of 5% timolol followed by 2 drops of 0.5% moxifloxacin and was lightly patched and shielded in the usual manner. There were no complications from the procedure. She tolerated the procedure well and was returned to outpatient recovery in good condition. MMROBIN / EMILY: [id number] /
== END 2024-10-05 12:33 | disposition home or self-care (01) ==
LOC: OR 08:33
PROVIDERS: ATTEND Ophthalmology
DX: H25.11 Age-related nuclear cataract, right eye (principal); H52.221 Regular astigmatism, right eye; I10 Essential (primary) hypertension; G47.33 Obstructive sleep apnea (adult) (pediatric); Q85.00 Neurofibromatosis, unspecified; Z79.899 Other long term (current) drug therapy; Z90.710 Acquired absence of both cervix and uterus; Z90.49 Acquired absence of other specified parts of digestive tract
CPT/HCPCS: 66984; V2632; J2250; J2003; J0166